=== PATIENT | female | born 1945 | race Caucasian/White ===

== ENCOUNTER 2020-07-07 10:24 | Outpatient (REF) | payer MEDICARE, OTHER, SELFPAY ==
[2020-07-07 10:42] LABS: MANUAL DIFF FLAG NO
[2020-07-07 10:56] LABS: Basophils Absolute Auto 0.1 X10*3/uL (0.0-0.2); Basophils Percent Auto 0.8 % (0-2); Eosinophils Absolute Auto 0.3 X10*3/uL (0.0-0.4); Eosinophils Percent Auto 3.9 % (0-4); Hematocrit 35.7 % (37-47); Hemoglobin 11.8 g/dl (12.0-16.0); Imm Gran Abs Auto 0.02 X10*3/uL (0.00-0.03); Imm Gran Pct Auto 0.2 % (0.0-0.4); Lymphocytes Absolute Auto 4.9 X10*3/uL (1.2-4.9); Mean Corpuscular HGB Conc 33.1 g/dl (31.0-35.0); Mean Corpuscular Hemoglobin 30.4 pg (27.0-33.0); Mean Platelet Volume 12.3 fL (9.4-12.3); Monocytes Percent Auto 11.7 % (2-11); Neutrophils Absolute Auto 2.1 X10*3/uL (2.0-8.3); Neutrophils Percent Auto 25.4 % (45-73); Platelet Count 294 X10*3/uL (160-400); Red Blood Count 3.88 X10*6/uL (4.20-5.50); Red Cell Distribution Width 15.5 % (11.0-16.0); White Blood Count 8.4 X10*3/uL (4.8-10.8)
[2020-07-07 11:05] LABS: Estimated Average Glucose 131 mg/dL; Hemoglobin A1c % 6.2 %
[2020-07-07 11:22] LABS: Alanine Aminotransferase 21 U/L (0-31); Albumin Level 3.9 g/dL (3.5-5.0); Alkaline Phosphatase 74 U/L (39-117); Anion Gap 13 (12-20); Aspartate Amino Transferase 29 U/L (5-31); Bilirubin Total 1.6 mg/dL (0.0-1.0); Blood Urea Nitrogen 56 mg/dL (9-16); Calcium 9.9 mg/dL (8.4-10.2); Carbon Dioxide 23 mmol/L (22-29); Chloride 105 mmol/L (96-108); Cholesterol 159 mg/dL; Estimated Glomerular Filt Rate 29; Glucose Fasting 134 mg/dL (60-99); HDL Cholesterol 34 mg/dL; LDL Cholesterol Calculated 93 mg/dl; Potassium 4.1 mmol/L (3.3-5.1); Sodium 137 mmol/L (135-145); Total Protein 9.8 g/dL (6.5-8.0); Triglycerides 160 mg/dL
== END 2020-07-07 10:25 | disposition home or self-care (01) ==
LOC: HO.LNP 10:24
PROVIDERS: Visit Provider Internal Medicine
DX: D72.820 Lymphocytosis (symptomatic) (principal); R73.09 Other abnormal glucose; I10 Essential (primary) hypertension; M32.9 Systemic lupus erythematosus, unspecified; D69.3 Immune thrombocytopenic purpura
CPT/HCPCS: 80053; 80061; 83036; 85025

== ENCOUNTER 2020-07-21 13:52 | Outpatient (REF) | payer MEDICARE, OTHER, SELFPAY ==
[2020-07-21 13:55] LABS: MANUAL DIFF FLAG NO
[2020-07-21 13:58] LABS: Basophils Percent Auto 0.3 % (0-2); Eosinophils Absolute Auto 0.2 X10*3/uL (0.0-0.4); Eosinophils Percent Auto 2.7 % (0-4); Hematocrit 32.8 % (37-47); Imm Gran Abs Auto 0.03 X10*3/uL (0.00-0.03); Imm Gran Pct Auto 0.3 % (0.0-0.4); Lymphocytes Absolute Auto 3.4 X10*3/uL (1.2-4.9); Lymphocytes Percent Auto 37.6 % (20-40); Mean Corpuscular HGB Conc 33.5 g/dl (31.0-35.0); Mean Corpuscular Hemoglobin 31.1 pg (27.0-33.0); Mean Corpuscular Volume 92.7 fL (80-98); Mean Platelet Volume 12.3 fL (9.4-12.3); Monocytes Absolute Auto 0.9 X10*3/uL (0.1-1.2); Monocytes Percent Auto 10.4 % (2-11); Neutrophils Absolute Auto 4.4 X10*3/uL (2.0-8.3); Neutrophils Percent Auto 48.7 % (45-73); Platelet Count 263 X10*3/uL (160-400); Red Blood Count 3.54 X10*6/uL (4.20-5.50); Red Cell Distribution Width 15.6 % (11.0-16.0)
[2020-07-21 14:06] LABS: Glucose Urine UA NEG (NEG); Leukocyte Esterase Urine 1+ (NEG); Nitrite Urine NEG (NEG); Specific Gravity - Urine 1.015 (1.005-1.025); Urine Blood NEG (NEG); Urine Ketones NEG (NEG); Urine Protein 1+ MG/DL (NEG-TRACE)
[2020-07-21 14:07] LABS: Appearance Urine HAZY; Color Urine YELLOW
[2020-07-21 14:23] LABS: Bacteria Urine 4+ /LPF; RBC Urine 0 /HPF (0); Squamous Epithelial Cell Urine TRACE /LPF; WBC Urine 30-49 /HPF (0-4)
[2020-07-21 14:32] LABS: Blood Urea Nitrogen 94 mg/dL (9-16); Estimated Glomerular Filt Rate 7
[2020-07-21 15:47] LABS: Creatinine Urine 85.13 mg/dL; Microalbum/Creatinine Ratio Ur 59.9 ug/mg cr
== END 2020-07-21 13:53 | disposition home or self-care (01) ==
LOC: HO.LNP 13:52
PROVIDERS: Visit Provider Internal Medicine
DX: D72.820 Lymphocytosis (symptomatic) (principal); R79.9 Abnormal finding of blood chemistry, unspecified; R73.09 Other abnormal glucose; I10 Essential (primary) hypertension
CPT/HCPCS: 81001; 81003; 82043; 82565; 84520; 85025

== ENCOUNTER 2020-08-04 09:39 | Outpatient (REF) | payer MEDICARE, OTHER, SELFPAY ==
[2020-08-04 10:27] LABS: MANUAL DIFF FLAG NO
[2020-08-04 10:35] LABS: Basophils Percent Auto 0.1 % (0-2); Eosinophils Absolute Auto 0.2 X10*3/uL (0.0-0.4); Eosinophils Percent Auto 2.2 % (0-4); Hemoglobin 10.2 g/dl (12.0-16.0); Imm Gran Abs Auto 0.07 X10*3/uL (0.00-0.03); Imm Gran Pct Auto 0.8 % (0.0-0.4); Lymphocytes Absolute Auto 2.8 X10*3/uL (1.2-4.9); Lymphocytes Percent Auto 31.1 % (20-40); Mean Corpuscular Hemoglobin 30.4 pg (27.0-33.0); Mean Corpuscular Volume 89.6 fL (80-98); Mean Platelet Volume 12.4 fL (9.4-12.3); Monocytes Absolute Auto 0.9 X10*3/uL (0.1-1.2); Monocytes Percent Auto 9.7 % (2-11); Neutrophils Percent Auto 56.1 % (45-73); Platelet Count 192 X10*3/uL (160-400); Red Blood Count 3.35 X10*6/uL (4.20-5.50); Red Cell Distribution Width 15.2 % (11.0-16.0); White Blood Count 8.9 X10*3/uL (4.8-10.8)
[2020-08-04 10:51] LABS: Alanine Aminotransferase 24 U/L (0-31); Albumin Level 3.5 g/dL (3.5-5.0); Alkaline Phosphatase 58 U/L (39-117); Anion Gap 12 (12-20); Aspartate Amino Transferase 22 U/L (5-31); Blood Urea Nitrogen 29 mg/dL (9-16); Calcium 8.2 mg/dL (8.4-10.2); Carbon Dioxide 23 mmol/L (22-29); Chloride 106 mmol/L (96-108); Estimated Glomerular Filt Rate 39; Glucose Random 162 mg/dL (60-115); Potassium 3.4 mmol/L (3.3-5.1); Sodium 138 mmol/L (135-145)
== END 2020-08-04 09:40 | disposition home or self-care (01) ==
LOC: HO.10HDL 09:39
PROVIDERS: Absent Provider Internal Medicine Nephrology; Visit Provider Internal Medicine
DX: Z13.89 Encounter for screening for other disorder (principal)
CPT/HCPCS: 36415; 80053; 85025

== ENCOUNTER 2020-12-02 13:15 | Outpatient (REF) | payer MEDICARE, OTHER, SELFPAY ==
[2020-12-02 13:20] LABS: MANUAL DIFF FLAG NO
[2020-12-02 13:23] LABS: Basophils Absolute Auto 0.1 X10*3/uL (0.0-0.2); Basophils Percent Auto 0.7 % (0-2); Eosinophils Absolute Auto 0.1 X10*3/uL (0.0-0.4); Eosinophils Percent Auto 0.7 % (0-4); Hematocrit 25.6 % (37-47); Hemoglobin 8.5 g/dl (12.0-16.0); Imm Gran Abs Auto 0.11 X10*3/uL (0.00-0.03); Imm Gran Pct Auto 1.1 % (0.0-0.4); Lymphocytes Absolute Auto 3.2 X10*3/uL (1.2-4.9); Lymphocytes Percent Auto 32.3 % (20-40); Mean Corpuscular HGB Conc 33.2 g/dl (31.0-35.0); Mean Corpuscular Hemoglobin 29.9 pg (27.0-33.0); Mean Corpuscular Volume 90.1 fL (80-98); Mean Platelet Volume 10.3 fL (9.4-12.3); Monocytes Absolute Auto 1.1 X10*3/uL (0.1-1.2); Monocytes Percent Auto 11.2 % (2-11); NRBC Pct Auto 0.2 /100WBC (0.0-0.2); Neutrophils Absolute Auto 5.3 X10*3/uL (2.0-8.3); Platelet Count 535 X10*3/uL (160-400); Red Blood Count 2.84 X10*6/uL (4.20-5.50); Red Cell Distribution Width 17.5 % (11.0-16.0); White Blood Count 9.8 X10*3/uL (4.8-10.8)
== END 2020-12-02 13:16 | disposition home or self-care (01) ==
LOC: HO.LNP 13:15
PROVIDERS: Visit Provider Internal Medicine
DX: K26.4 Chronic or unspecified duodenal ulcer with hemorrhage (principal)
CPT/HCPCS: 85025

== ENCOUNTER 2021-03-12 08:04 | Outpatient (REF) | payer MEDICARE, OTHER, SELFPAY ==
--- NOTE | ~2021-03-12 | MM_ITS ---
EXAMINATION: MM SCREENING DIGITAL BREAST TOMOSYNTHESIS, BILATERAL CLINICAL INFORMATION: Screening. Asymptomatic. The lifetime risk of breast cancer based on the Tyrer-Cuzick Model is 2%. COMPARISON: Mammography: 11/30/2019, 11/21/2018, 11/17/2017 TECHNIQUE: Digital breast tomosynthesis is performed in both the craniocaudal and mediolateral oblique views along with computer-aided detection (CAD). Synthesized 2D images are generated from the tomosynthesis. FINDINGS: There are scattered areas of fibroglandular density (ACR BI-RADS breast composition Category b). There are no significant masses, abnormal calcifications, or other abnormalities. There is a biopsy clip on right posterior central 9:00 position. Parenchymal pattern is similar to prior studies. No developing density. MM/MM tomosynthesis screening BI IMPRESSION: No mammographic evidence of malignancy. ASSESSMENT: BI-RADS 1: Negative RECOMMENDATION: Routine annual mammography screening. This patient's information was entered into a reminder system with a target due date for their next mammogram.
== END 2021-03-12 08:05 | disposition home or self-care (01) ==
LOC: HO.MAMMO 08:04
PROVIDERS: PCP Internal Medicine; Visit Provider Internal Medicine
DX: Z12.31 Encounter for screening mammogram for malignant neoplasm of breast (principal)
CPT/HCPCS: 77063; 77067

== ENCOUNTER 2021-03-23 09:49 | Outpatient (REF) | payer MEDICARE, OTHER, SELFPAY | END 2021-03-23 09:50 | disposition home or self-care (01) | LOC: HO.HMGCLDS 09:49 | PROVIDERS: PCP Internal Medicine; Visit Provider Internal Medicine | DX: Z20.822 Contact with and (suspected) exposure to COVID-19 (principal) | CPT/HCPCS: C9803; U0003; U0005 ==

== ENCOUNTER 2021-07-23 10:16 | Outpatient (REF) | payer MEDICARE, OTHER, SELFPAY ==
[2021-07-23 10:22] LABS: MANUAL DIFF FLAG NO
[2021-07-23 11:05] LABS: Basophils Absolute Auto 0.1 X10*3/uL (0.0-0.2); Basophils Percent Auto 1.1 % (0-2); Eosinophils Absolute Auto 0.9 X10*3/uL (0.0-0.4); Eosinophils Percent Auto 17.2 % (0-4); Hematocrit 37.9 % (37.0-47.0); Hemoglobin 12.5 g/dl (12.0-16.0); Imm Gran Abs Auto 0.02 X10*3/uL (0.00-0.03); Imm Gran Pct Auto 0.4 % (0.0-0.4); Lymphocytes Absolute Auto 1.8 X10*3/uL (1.2-4.9); Lymphocytes Percent Auto 33.2 % (20-40); Mean Corpuscular Hemoglobin 29.7 pg (27.0-33.0); Mean Platelet Volume 12.2 fL (9.4-12.3); Monocytes Absolute Auto 0.6 X10*3/uL (0.1-1.2); Monocytes Percent Auto 10.4 % (2-11); Neutrophils Absolute Auto 2.1 x10*3/uL (2.0-8.3); Neutrophils Percent Auto 37.7 % (45-73); Platelet Count 221 X10*3/uL (160-400); Red Blood Count 4.21 X10*6/uL (4.20-5.50); Red Cell Distribution Width 16.8 % (11.0-16.0); White Blood Count 5.5 X10*3/uL (4.8-10.8)
[2021-07-23 11:19] LABS: Alanine Aminotransferase 27 U/L (0-31); Albumin Level 3.9 g/dL (3.5-5.0); Alkaline Phosphatase 122 U/L (39-117); Anion Gap 14 (12-20); Appearance Urine CLEAR; Aspartate Amino Transferase 31 U/L (5-31); Blood Urea Nitrogen 15 mg/dL (9-16); Calcium 9.6 mg/dL (8.4-10.2); Carbon Dioxide 22 mmol/L (22-29); Chloride 109 mmol/L (96-108); Cholesterol 168 mg/dL; Color Urine YELLOW; Estimated Glomerular Filt Rate > 60; Glucose Fasting 105 mg/dL (60-99); Glucose Urine UA NEG (NEG); HDL Cholesterol 49 mg/dL; LDL Cholesterol Calculated 101 mg/dl; Leukocyte Esterase Urine 2+ (NEG); Nitrite Urine NEG (NEG); PH 5.5 (5.0-8.0); Potassium 4.5 mmol/L (3.3-5.1); Sodium 140 mmol/L (135-145); Total Protein 6.3 g/dL (6.5-8.0); Triglycerides 93 mg/dL; Urine Blood NEG (NEG); Urine Ketones NEG (NEG); Urine Protein NEG (NEG-TRACE)
[2021-07-23 11:20] LABS: Estimated Average Glucose 108 mg/dL; Hemoglobin A1c % 5.4 %
[2021-07-23 11:28] LABS: Bacteria Urine 4+ /LPF; RBC Urine 0 /HPF (0)
[2021-07-23 11:33] LABS: Creatinine Urine 69.17 mg/dL; Microalbum/Creatinine Ratio Ur 53.4 ug/mg cr
== END 2021-07-23 10:17 | disposition home or self-care (01) ==
LOC: HO.LNP 10:16
PROVIDERS: Visit Provider Internal Medicine
DX: D72.820 Lymphocytosis (symptomatic) (principal); R73.03 Prediabetes; I10 Essential (primary) hypertension
CPT/HCPCS: 80053; 80061; 81001; 81003; 82043; 83036; 85025

== ENCOUNTER 2021-07-27 15:34 | Outpatient (REF) | payer MEDICARE, OTHER, SELFPAY | END 2021-07-27 15:35 | disposition home or self-care (01) | LOC: HO.LNP 15:34 | PROVIDERS: Visit Provider Internal Medicine | DX: N39.0 Urinary tract infection, site not specified (principal) | CPT/HCPCS: 87086; 87088; 87186 ==

== ENCOUNTER 2022-03-16 08:10 | Outpatient (REF) | payer MEDICARE, OTHER, SELFPAY ==
--- NOTE | ~2022-03-16 | MM_ITS ---
EXAMINATION: MM SCREENING DIGITAL BREAST TOMOSYNTHESIS, BILATERAL CLINICAL INFORMATION: Screening. Asymptomatic. The lifetime risk of breast cancer based on the Tyrer-Cuzick Model is 2%. COMPARISON: Mammography: 03/12/2021, 11/30/2019, 11/21/2018 TECHNIQUE: Digital breast tomosynthesis is performed in both the craniocaudal and mediolateral oblique views along with computer-aided detection (CAD). Synthesized 2D images are generated from the tomosynthesis. Additional bilateral MLO views are provided. FINDINGS: There are scattered areas of fibroglandular density (ACR BI-RADS breast composition Category b). There are no significant masses, abnormal calcifications, or other abnormalities. No developing density or architectural abnormality. Biopsy clip marker again seen central posterior outer right breast. MM/MM tomosynthesis screening BI IMPRESSION: No mammographic evidence of malignancy. ASSESSMENT: BI-RADS 1: Negative RECOMMENDATION: Routine annual mammography screening. This patient's information was entered into a reminder system with a target due date for their next mammogram.
== END 2022-03-16 08:11 | disposition home or self-care (01) ==
LOC: HO.MAMMO 08:10
PROVIDERS: PCP Internal Medicine; Visit Provider Internal Medicine
DX: Z12.31 Encounter for screening mammogram for malignant neoplasm of breast (principal)
CPT/HCPCS: 77063; 77067

== ENCOUNTER 2022-07-26 10:44 | Outpatient (REF) | payer MEDICARE, OTHER, SELFPAY ==
[2022-07-26 10:48] LABS: MANUAL DIFF FLAG NO
[2022-07-26 11:26] LABS: Appearance Urine Cloudy; Color Urine Yellow; Glucose Urine UA Negative (Negative); Leukocyte Esterase Urine Moderate (2+) (Negative); Nitrite Urine Negative (Negative); PH 6.5 (5.0-9.0); Specific Gravity - Urine 1.015 (1.005-1.025); UMIC TRIGGER UACC YES; Urine Blood Negative (Negative); Urine Ketones Negative (Negative); Urine Protein Negative (Neg-Trace)
[2022-07-26 11:30] LABS: Bacteria Urine 4+ (None Seen); Hyaline Casts Urine 0-2 /LPF (0-2); RBC Urine 0-2 /HPF (0-2); Squamous Epithelial Cell Urine 0-2 /HPF (0-2); UACC Culture Trigger YES
[2022-07-26 11:31] LABS: Basophils Absolute Auto 0.1 X10*3/uL (0.0-0.2); Basophils Percent Auto 0.9 % (0-2); Eosinophils Absolute Auto 0.7 X10*3/uL (0.0-0.4); Eosinophils Percent Auto 12.1 % (0-4); Hematocrit 35.8 % (37.0-47.0); Hemoglobin 12.1 g/dl (12.0-16.0); Imm Gran Abs Auto 0.02 X10*3/uL (0.00-0.03); Imm Gran Pct Auto 0.4 % (0.0-0.4); Lymphocytes Absolute Auto 2.3 X10*3/uL (1.2-4.9); Lymphocytes Percent Auto 39.6 % (20-40); Mean Corpuscular HGB Conc 33.8 g/dl (31.0-35.0); Mean Corpuscular Hemoglobin 30.7 pg (27.0-33.0); Mean Corpuscular Volume 90.9 fL (80.0-98.0); Mean Platelet Volume 11.7 fL (9.4-12.3); Monocytes Absolute Auto 0.7 X10*3/uL (0.1-1.2); Monocytes Percent Auto 12.6 % (2-11); Neutrophils Percent Auto 34.4 % (45-73); Platelet Count 244 X10*3/uL (160-400); Red Blood Count 3.94 X10*6/uL (4.20-5.50); Red Cell Distribution Width 16.8 % (11.0-16.0); White Blood Count 5.7 X10*3/uL (4.8-10.8)
[2022-07-26 11:38] LABS: Estimated Average Glucose 114 mg/dL; Hemoglobin A1c % 5.6 %
[2022-07-26 12:05] LABS: Alanine Aminotransferase 19 U/L (0-31); Albumin Level 3.8 g/dL (3.5-5.0); Alkaline Phosphatase 133 U/L (39-117); Anion Gap 13 (12-20); Aspartate Amino Transferase 23 U/L (5-31); Bilirubin Total 1.4 mg/dL (0.0-1.0); Blood Urea Nitrogen 16 mg/dL (9-16); Calcium 8.7 mg/dL (8.4-10.2); Carbon Dioxide 23 mmol/L (22-29); Chloride 107 mmol/L (96-108); Cholesterol 150 mg/dL; Estimated Glomerular Filt Rate > 60; Glucose Fasting 119 mg/dL (60-99); HDL Cholesterol 47 mg/dL; LDL Cholesterol Calculated 89 mg/dl; Potassium 3.9 mmol/L (3.3-5.1); Sodium 139 mmol/L (135-145); Total Protein 6.7 g/dL (6.5-8.0); Triglycerides 72 mg/dL
[2022-07-26 12:37] LABS: Creatinine Urine 59.32 mg/dL; Microalbum/Creatinine Ratio Ur 8.4 ug/mg cr
== END 2022-07-26 10:45 | disposition home or self-care (01) ==
LOC: HO.LNP 10:44
PROVIDERS: Visit Provider Internal Medicine
DX: Z00.00 Encounter for general adult medical examination without abnormal findings (principal); D72.820 Lymphocytosis (symptomatic); R73.03 Prediabetes; I10 Essential (primary) hypertension
CPT/HCPCS: 80053; 80061; 81001; 82043; 83036; 85025; 87086; 87088; 87186

== ENCOUNTER 2023-03-23 08:15 | Outpatient (REF) | payer MEDICARE, OTHER, SELFPAY ==
--- NOTE | ~2023-03-23 | MM_ITS ---
EXAMINATION: MM SCREENING DIGITAL BREAST TOMOSYNTHESIS, BILATERAL CLINICAL INFORMATION: Screening. Asymptomatic. COMPARISON: Mammography: This study is compared with prior exams dating back to 2018. TECHNIQUE: Digital breast tomosynthesis is performed in both the craniocaudal and mediolateral oblique views along with computer-aided detection (CAD). Synthesized 2D images are generated from the tomosynthesis. FINDINGS: There are scattered areas of fibroglandular density (ACR BI-RADS breast composition Category b). There are no significant masses, abnormal calcifications, or other abnormalities. There is a tissue marker present in the right breast from prior benign percutaneous biopsy. MM/MM tomosynthesis screening BI IMPRESSION: No mammographic evidence of malignancy. ASSESSMENT: BI-RADS BI-RADS 2 - Benign Findings RECOMMENDATION: Routine annual mammography screening. 1 year F/U This examination should not preclude the clinical evaluation of a suspicious palpable abnormality. This patient's information was entered into a reminder system with a target due date for their next mammogram.
== END 2023-03-23 08:16 | disposition home or self-care (01) ==
LOC: HO.MAMMO 08:15
PROVIDERS: PCP Internal Medicine; Visit Provider Internal Medicine
DX: Z12.31 Encounter for screening mammogram for malignant neoplasm of breast (principal)
CPT/HCPCS: 77063; 77067

== ENCOUNTER → 2023-03-23 08:30 | Outpatient (BNV) | payer MEDICARE, OTHER, SELFPAY | PROVIDERS: PCP Internal Medicine; Visit Provider Radiology Diagnostic Radiology | DX: Z12.31 Encounter for screening mammogram for malignant neoplasm of breast (principal) | CPT/HCPCS: 77063; 77067 ==

== ENCOUNTER 2023-07-26 11:20 | Outpatient (REF) | payer MEDICARE, OTHER, SELFPAY ==
[2023-07-26 11:26] LABS: MANUAL DIFF FLAG NO
[2023-07-26 11:40] LABS: Basophils Absolute Auto 0.1 X10*3/uL (0.0-0.2); Basophils Percent Auto 1.5 % (0-2); Eosinophils Absolute Auto 0.8 X10*3/uL (0.0-0.4); Eosinophils Percent Auto 16.2 % (0-4); Hematocrit 35.3 % (37.0-47.0); Hemoglobin 12.2 g/dl (12.0-16.0); Imm Gran Abs Auto 0.02 X10*3/uL (0.00-0.03); Imm Gran Pct Auto 0.4 % (0.0-0.4); Lymphocytes Absolute Auto 2.1 X10*3/uL (1.2-4.9); Lymphocytes Percent Auto 43.5 % (20-40); Mean Corpuscular HGB Conc 34.6 g/dl (31.0-35.0); Mean Corpuscular Hemoglobin 31.2 pg (27.0-33.0); Mean Corpuscular Volume 90.3 fL (80.0-98.0); Mean Platelet Volume 11.4 fL (9.4-12.3); Monocytes Absolute Auto 0.6 X10*3/uL (0.1-1.2); Monocytes Percent Auto 12.1 % (2-11); NRBC Pct Auto 0.4 /100WBC (0.0-0.2); Neutrophils Absolute Auto 1.3 x10*3/uL (2.0-8.3); Neutrophils Percent Auto 26.3 % (45-73); Platelet Count 212 X10*3/uL (160-400); Red Blood Count 3.91 X10*6/uL (4.20-5.50); Red Cell Distribution Width 18.1 % (11.0-16.0); White Blood Count 4.8 X10*3/uL (4.8-10.8)
[2023-07-26 11:45] LABS: Estimated Average Glucose 111 mg/dL; Hemoglobin A1C 114.1804 umol/L; Hemoglobin A1c % 5.5 % (<6.0)
[2023-07-26 11:53] LABS: Alanine Aminotransferase 20 U/L (0-31); Albumin Level 3.7 g/dL (3.5-5.0); Alkaline Phosphatase 125 U/L (39-117); Anion Gap 11 (12-20); Aspartate Amino Transferase 24 U/L (5-31); Bilirubin Total 0.6 mg/dL (0.0-1.0); Blood Urea Nitrogen 17 mg/dL (9-16); Calcium 9.1 mg/dL (8.4-10.2); Carbon Dioxide 24 mmol/L (22-29); Chloride 113 mmol/L (96-108); Cholesterol 122 mg/dL (<200); Estimated Glomerular Filt Rate > 60; Glucose Fasting 102 mg/dL (60-99); HDL Cholesterol 48 mg/dL (>40); LDL Cholesterol Calculated 62 mg/dL (<100); Potassium 3.8 mmol/L (3.3-5.1); Sodium 144 mmol/L (135-145); Total Protein 7.4 g/dL (6.5-8.0); Triglycerides 60 mg/dL (<150)
== END 2023-07-26 11:21 | disposition home or self-care (01) ==
LOC: HO.LNP 11:20
PROVIDERS: Visit Provider Internal Medicine
DX: D72.820 Lymphocytosis (symptomatic) (principal); R73.09 Other abnormal glucose; I10 Essential (primary) hypertension
CPT/HCPCS: 80053; 80061; 83036; 85025

== ENCOUNTER 2023-08-11 16:00 | Outpatient (REF) | payer MEDICARE, OTHER, SELFPAY ==
[2023-08-11 16:31] LABS: Appearance Urine Clear; Bacteria Urine None Seen (None Seen); Color Urine Yellow; Glucose Urine UA Negative (Negative); Hyaline Casts Urine 0-2 /LPF (0-2); Leukocyte Esterase Urine Negative (Negative); Nitrite Urine Negative (Negative); RBC Urine 0-2 /HPF (0-2); Specific Gravity - Urine 1.025 (1.005-1.025); Squamous Epithelial Cell Urine 0-2 /HPF (0-2); UMIC TRIGGER UACC YES; Urine Blood Negative (Negative); Urine Ketones Trace mg/dL (Negative); Urine Protein 100 (2+) mg/dL (Neg-Trace); WBC Urine 0-5 /HPF (0-5)
[2023-08-11 16:45] LABS: Creatinine Urine 162.98 mg/dL; Microalbum/Creatinine Ratio Ur 276.7 ug/mg cr (<30)
== END 2023-08-11 16:01 | disposition home or self-care (01) ==
LOC: HO.LNP 16:00
PROVIDERS: Visit Provider Internal Medicine
DX: I10 Essential (primary) hypertension (principal); R73.03 Prediabetes
CPT/HCPCS: 81001; 82043; 82570

== ENCOUNTER 2024-04-30 11:36 | Outpatient (REF) | payer MEDICARE, OTHER, SELFPAY ==
--- NOTE | ~2024-04-30 | MM_ITS ---
EXAMINATION: MM SCREENING DIGITAL BREAST TOMOSYNTHESIS, BILATERAL CLINICAL INFORMATION: Screening. Asymptomatic. COMPARISON: Mammography: Comparison is made with available priors TECHNIQUE: Digital breast mammography with tomosynthesis is performed in both the craniocaudal and mediolateral oblique views along with computer-aided detection (CAD). FINDINGS: There are scattered areas of fibroglandular density (ACR BI-RADS breast composition Category b). Right marker clip. There are no significant masses, abnormal calcifications, or other abnormalities. MM/MM tomosynthesis screening BI IMPRESSION: No mammographic evidence of malignancy. ASSESSMENT: BI-RADS BI-RADS 2 - Benign Findings RECOMMENDATION: Routine annual mammography screening. 1 year F/U This examination should not preclude the clinical evaluation of a suspicious palpable abnormality. This patient's information was entered into a reminder system with a target due date for their next mammogram. Electronically signed by: Riri Benitez DO 05/06/2024 05:58 PM BEE
== END 2024-04-30 11:37 | disposition home or self-care (01) ==
LOC: HO.MAMMO 11:36
PROVIDERS: PCP Internal Medicine; Visit Provider Internal Medicine
DX: Z12.31 Encounter for screening mammogram for malignant neoplasm of breast (principal)
CPT/HCPCS: 77063; 77067

== ENCOUNTER → 2024-04-30 11:45 | Outpatient (BNV) | payer MEDICARE, OTHER, SELFPAY | PROVIDERS: PCP Internal Medicine; Visit Provider Internal Medicine | DX: Z12.31 Encounter for screening mammogram for malignant neoplasm of breast (principal) | CPT/HCPCS: 77063; 77067 ==

== ENCOUNTER 2024-08-07 07:45 | Outpatient (REF) | payer MEDICARE, OTHER, SELFPAY ==
[2024-08-07 11:10] LABS: MANUAL DIFF FLAG NO
[2024-08-07 11:30] LABS: Basophils Absolute Auto 0.1 X10*3/uL (0.0-0.2); Basophils Percent Auto 0.9 % (0-2); Eosinophils Absolute Auto 0.6 X10*3/uL (0.0-0.4); Eosinophils Percent Auto 10.9 % (0-4); Hematocrit 31.9 % (37.0-47.0); Imm Gran Abs Auto 0.08 X10*3/uL (0.00-0.03); Imm Gran Pct Auto 1.5 % (0.0-0.4); Lymphocytes Absolute Auto 2.1 X10*3/uL (1.2-4.9); Lymphocytes Percent Auto 38.8 % (20-40); Mean Corpuscular HGB Conc 34.5 g/dl (31.0-35.0); Mean Corpuscular Hemoglobin 30.6 pg (27.0-33.0); Mean Corpuscular Volume 88.9 fL (80.0-98.0); Mean Platelet Volume 11.3 fL (9.4-12.3); Monocytes Absolute Auto 0.6 X10*3/uL (0.1-1.2); Monocytes Percent Auto 10.4 % (2-11); Neutrophils Percent Auto 37.5 % (45-73); Platelet Count 269 X10*3/uL (160-400); Red Blood Count 3.59 X10*6/uL (4.20-5.50); Red Cell Distribution Width 17.7 % (11.0-16.0); White Blood Count 5.4 X10*3/uL (4.8-10.8)
[2024-08-07 11:33] LABS: NRBC Pct Auto 2.6 /100WBC (0.0-0.2)
[2024-08-07 11:34] LABS: Appearance Urine Clear; Color Urine Yellow; Glucose Urine UA Negative (Negative); Leukocyte Esterase Urine Negative (Negative); Nitrite Urine Negative (Negative); PH 5.5 (5.0-9.0); Specific Gravity - Urine 1.015 (1.005-1.025); Urine Blood Negative (Negative); Urine Ketones Negative (Negative); Urine Protein Negative (Neg-Trace)
[2024-08-07 11:37] LABS: Estimated Average Glucose 108 mg/dL; Hemoglobin A1C 107.8422 umol/L; Hemoglobin A1c % 5.4 % (<6.0); Total Hemoglobin (HGBA1C) 3022.4486 umol/L
[2024-08-07 11:43] LABS: Bacteria Urine None Seen (None Seen); Hyaline Casts Urine 0-2 /LPF (0-2); RBC Urine 0-2 /HPF (0-2); Squamous Epithelial Cell Urine 0-2 /HPF (0-2); WBC Urine 0-5 /HPF (0-5)
[2024-08-07 11:47] LABS: Alanine Aminotransferase 23 U/L (0-31); Albumin Level 3.5 g/dL (3.5-5.0); Alkaline Phosphatase 112 U/L (39-117); Anion Gap 11 (12-20); Aspartate Amino Transferase 42 U/L (5-31); Bilirubin Total 1.6 mg/dL (0.0-1.0); Blood Urea Nitrogen 23 mg/dL (9-16); Calcium 9.3 mg/dL (8.4-10.2); Carbon Dioxide 22 mmol/L (22-29); Chloride 110 mmol/L (96-108); Cholesterol 111 mg/dL (<200); Estimated Glomerular Filt Rate 58; Glucose Fasting 98 mg/dL (60-99); HDL Cholesterol 53 mg/dL (>40); LDL Cholesterol Calculated 47 mg/dL (<100); Sodium 139 mmol/L (135-145); Total Protein 6.6 g/dL (6.5-8.0); Triglycerides 59 mg/dL (<150)
[2024-08-07 12:03] LABS: Creatinine Urine 80.55 mg/dL; Microalbumin Urine < 5.0 mg/L
--- OUTSIDE RECORDS SUMMARY | 2024-08-07 13:41 | XMS_ITS | Clinical Summary ---
Author Organization [facility] Facility Address [address] [place] [address] Care Team Providers Care Automatic Grinding Machine Operator Name Role Phone Jonathan Lilly MD Primary Care Provider Allergies Active Allergy Reactions Criticality Noted Date Comments Clindamycin 08/01/2020 Hyoscyamine 08/01/2020 LEVBID - HIVES Penicillins 08/01/2020 Medications acetaminophen (TYLENOL) 325 MG tablet Take 650 mg by mouth every 6 (six) hours Active amLODIPine (NORVASC) 10 MG tablet Take 10 mg by mouth 1 (one) time each day Active carvedilol (COREG) 12.5 MG tablet Take 12.5 mg by mouth 1 (one) time each day Active furosemide (LASIX) 20 MG tablet Take 20 mg by mouth 1 (one) time each day if needed Active sodium bicarbonate 650 MG tablet Take 1,300 mg by mouth 2 (two) times a day Active Active Problems Problem Noted Date Diagnosed Date Chronic kidney disease, stage 4 (severe) 021 Acute nontraumatic kidney injury Diastolic heart failure Hemolytic anemia Hypertension Leukocytosis Metabolic acidosis Multiple myeloma Nephrotic range proteinuria Other abnormal clinical findings Overview (08/01/2020): elevated kappa to lambda ratio, IgG elevated, IgA and IgM decreased Thyroid stimulating hormone level above referenc e range Systemic lupus erythematosus Serum creatinine above reference range Albuminuria Social History Tobacco Use Types Packs/Day Years Used Date Smoking Tobacco: Never Comments Unknown Sex and Gender Information Value Date Recorded Sex Assigned at Not on file Legal Sex Female 10:14 AM EDT Gender Identity Not on file Sexual Orientation Not on file Plan of Treatment Health Maintenance Due Date Last Done Comments Pneumococcal Vaccine: 50+ Ye ars (1 of 2 - PCV) 1964 Influenza Vaccine (Season Ended) 2024 Hepatitis B Vaccine Aged Out No longe r eligible based on patient's age to complete this topic Insurance Medicare [facility] Care Teams Automatic Grinding Machine Operator Relationship Specialty Start Date End Date Jonathan Lilly MD [address] [place] [address] [address] [place], [place] PCP - General Internal Medicine 08/01/20
--- OUTSIDE RECORDS SUMMARY | 2024-08-07 13:41 | XMS_ITS ---
Author Organization Jonathan Lilly MD Address [address] [place], [place] [id number] Care Team Providers Care Concrete Rod Buster Name Role Phone Jonathan Lilly Primary Care Provider Results Component Value Reference Range Notes Comprehensive Ohlman. Panel Fa st (Not yet reviewed by provider) Interpretation: Performing Lab:[facility], [address] [place] [id number] Notes/Report: Sodium 139 135-145 mmol/L Potassium 4.0 3.3-5.1 mmol/L Chloride 110 96-108 mmol/L Carbon Dioxide 22 22-29 mmol/L Anion Gap 11 12-20 Blood Urea Nitrogen 23 9-16 mg/dL Creatinine 0.93 0.5-1.4 mg/dL Estimated Glomerular Filt Rate 58 Chronic Kidney Disease: Estimated GFR < 60 mL/min/1.73m2 Severe Kidney Disease: Estimated GFR < 15 mL/min/1.73m2 Glucose Fasting 98 60-99 mg/dL Calcium 9.3 8.4-10.2 mg/dL Bilirubin Total 1.6 0.0-1.0 mg/dL Aspartate Amino Transferase 42 5-31 U/L Alanine Aminotransferase 23 0-31 U/L Total Protein 6.6 6.5-8.0 g/dL Albumin Level 3.5 3.5-5.0 g/dL Alkaline Phosphatase 112 39-117 U/L UA ClnCatch+Micro w/rflx Cul t (Not yet reviewed by provider) Interpretation: Performing Lab:[facility], [address] [place] [phone] Notes/Report: Urine, Clean Catch Color Urine Yellow Appearance Urine Clear PH 5.5 5.0-9.0 Glucose Urine UA Negative Negative mg/dL Urine Blood Negative Negative Specific Munger - Urine 1.015 1.005-1.025 Urine Protein Negative Neg-Trace mg/dL Urine Ketones Negative Negative mg/dL Nitrite Urine Negative Negative Leukocyte Esterase Urine Negative Negative RBC Urine 0-2 0-2 /HPF WBC Urine 0-5 0-5 /HPF Squamous Epithelial Cell Urine 0-2 0-2 /HPF Bacteria Urine None Seen None Seen Hyaline Casts Urine 0-2 0-2 /LPF Complete Blood Count Auto Di ff Reviewed date:08/07/2024 01:12:06 PM Interpretation: Performing Lab:[facility], [address] [place] [phone] Notes/Report: White Blood Count 5.4 4.8-10.8 X10*3/uL Red Blood Count 3.59 4.20-5.50 X10*6/uL Hemoglobin 11.0 12.0-16.0 g/dl Hematocrit 31.9 37.0-47.0 % Mean Corpuscular Volume 88.9 80.0-98.0 fL Mean Corpuscular Hemoglobin 30.6 27.0-33.0 pg Mean Corpuscular HGB Conc 34.5 31.0-35.0 g/dl Red Cell Distribution Width 17.7 11.0-16.0 % Platelet Count 269 160-400 X10*3/uL Mean Platelet Volume 11.3 9.4-12.3 fL Neutrophils Percent Auto 37.5 45-73 % Imm Gran Pct Auto 1.5 0.0-0.4 % Lymphocytes Percent Auto 38.8 20-40 % Monocytes Percent Auto 10.4 2-11 % Eosinophils Percent Auto 10.9 0-4 % Basophils Percent Auto 0.9 0-2 % NRBC Pct Auto 2.6 0.0-0.2 /100WBC Neutrophils Absolute Auto 2.0 2.0-8.3 x10*3/u L Imm Gran Abs Auto 0.08 0.00-0.03 X10*3/uL Lymphocytes Absolute Auto 2.1 1.2-4.9 X10*3/u L Monocytes Absolute Auto 0.6 0.1-1.2 X10*3/uL Eosinophils Absolute Auto 0.6 0.0-0.4 X10*3/u L Basophils Absolute Auto 0.1 0.0-0.2 X10*3/uL NRBC Abs Auto 0.140 0.0-0.012 X10*3/uL Lipid Panel Reviewed date:08/07/2024 01:05:25 PM Interpretation: Performing Lab:[address] [phone] Notes/Report: Triglycerides 59 <150 mg/dL Desirable Triglyceride: less than 150 mg/dL Borderline High Triglyceride 150-199 mg/dL High Triglyceride: 200-499 mg/dL Very High Triglyceride: greater than or equal to 5OO mg/dL Cholesterol 111 <200 mg/dL Desirable Cholesterol: less than 200 mg/dL Borderline High Cholesterol: 200-239 mg/dL High Cholesterol: greater than 239 mg/dL LDL Cholesterol Calculated 47 <100 mg/dL Desirable LDL: less than 100 mg/dL Near Optimal/Above Optimal LDL: 110-129 mg/dL Borderline High LDL: 130-159 mg/dL High LDL: 160-189 mg/dL Very High LDL: greater than or equal to 190 mg/dL HDL Cholesterol 53 >40 mg/dL Desirable HDL: greater than 40 mg/dL Note: This HDL assay may give artificially low results in patients with liver disease. Microalbumin, Random Reviewed date:08/07/2024 01:06:06 PM Interpretation: Performing Lab:[address] [phone] Notes/Report: Creatinine Urine 80.55 Microalbumin Urine < 5.0 Microalbum/Creatinine Ratio Ur TNP <30 ug/mg cr Unable to calculate albumin/creatinine ratio due to low microalbumin or creatinine result. Hemoglobin A1c Reviewed date:08/07/2024 01:05:09 PM Interpretation: Performing Lab:[address] [place] [address] Notes/Report: Hemoglobin A1c % 5.4 <6.0 % Hemoglobin A1C Reference Range Adults: 4.8 - 6.0 % Non diabetic: < 6.0 % Goal: < 7.0 % Additional Action Suggested: > 8.0 % Note: Hemoglobin A1c results are invalid for patients with abnormal amounts of HbF. Blood transfusions may impact the HbA1c concentration in the patient sample. Estimated Average Glucose 108 eAG = Estimated average glucose which is %A1C expressed as average glucose, using the formula of the [id number] Average Glucose study (ADAG), Diabetes Care, Vol.31,#8, 2007 REASON FOR VISIT FASTING LABS Encounters Encounter Location Date Provider Diagnosis Jonathan Lilly MD [address] [place] [address] [place] [phone] 08/07/2024 Jonathan Lilly Lymphocytosis D72.82 0 ; Prediabetes R73.09 and Essential hypertension I10 Assessments Encounter Date Diagnosis (ICD Code) Assessment Notes Treatment Notes Treatment Clinical Notes Section Notes 08/07/2024 Lymphocytosis (ICD-10 - D72.820) 08/07/2024 Prediabetes (ICD-10 - R73.09) 08/07/2024 Essential hypertension (ICD-10 - I10) Plan Of Treatment Pending Test Test Name Order Date Comprehensive Ohlman. Panel Fast UA ClnCatch+Micro w/rflx Cult 08/07/2024 Next Appt Details Provider Name:Jonathan Fisher ier, 08/14/2024 10:30:00 AM, [address] [place] [address], [place] [address], [place], [place], [phone], Progress Notes * Valarie SZYMANSKI MDOB:1945 ( 78 yo F)Acc No.[id number]:08/07/2024 Progress Note Patient:?Valarie SZYMANSKI Provider:?Jonathan Lilly MD :1945???Age:78 Y???Sex:Female D ate:08/07/2024 Address:[address] [place], [place] [id number] Subjective: * Chief Complaints: * ???1. FASTING LABS. * Medical History:? Objective: * Vitals:? Assessment: * Assessment: 1.?Lymphocytosis - D72.820 ( Primary)???2.?Prediabetes - R73.09???3.?Essential hypertension - I10??? Plan: * Treatment: 2.?Prediabetes?LAB: Comprehensive Ohlman. Panel Fast (Collection Date & Time - 08/07/2024 07:45 AM) ?LAB: UA ClnCatch+Micro w/rflx Cult (Collection Date & Time - 08/07/2024 07:45 AM) ?LAB: Complete Blood Count Auto Diff (Collection Date & Time - 08/07/2024 07:45 AM) ?LAB: Lipid Panel (Collection Date & Time - 08/07/2024 07:45 AM) ?LAB: Microalbumin, Random (Collection Date & Time - 08/07/2024 07:45 AM) ?LAB: Hemoglobin A1c (Collection Date & Time - 08/07/2024 07:45 AM) 3.?Essential hypertension?LAB: Comprehensive Ohlman. Panel Fast (Collection Date & Time - 08/07/2024 07:45 AM) ?LAB: UA ClnCatch+Micro w/rflx Cult (Collection Date & Time - 08/07/2024 07:45 AM) ?LAB: Complete Blood Count Auto Diff (Collection Date & Time - 08/07/2024 07:45 AM) ?LAB: Lipid Panel (Collection Date & Time - 08/07/2024 07:45 AM) ?LAB: Microalbumin, Random (Collection Date & Time - 08/07/2024 07:45 AM) ?LAB: Hemoglobin A1c (Collection Date & Time - 08/07/2024 07:45 AM) * Procedure Codes:?19710 VENIP UNCT, ROUTINE* * * The named appointment provid er may or may not be the originator of this progress note, and it is not deemed complete until electronically signed by the appointment provider. Sign off status: Pending * Provider:?Jonathan Lilly MD Date:?0 08/07/2024 Generated for Printi ng/Dustin/Mayiitting on:?08/07/2024 01:41 PM EDT
--- OUTSIDE RECORDS SUMMARY | 2024-08-07 13:41 | XMS_ITS | Patient Health Record ---
[facility] Address [address] [place] [address] Care Team Providers Care Lobster Man Name Role Phone Vijaya RIVAS, Jonathan Primary Care Provider Cristóbal Wright Unavailable [phone] Allergies Allergen (clinical drug ingredient) Drug/Non Drug Allergy documented on EMR Reaction Allergy Type Onset Date Status hyoscyamine Levbid hives Drug Allergy Activ e Substance with penicillin structure and antibacterial mechanism of action (substance) Penicillins hives Drug Allergy Active Reason For Referral No Information Medications Medication SIG (Take, Route, Frequency, Duration) Notes Start Date End Date Status Revlimid 10 MG 1 capsule Orally Onc e a day Active Zometa Active Pantoprazole Sodium 40 MG 1 tablet Orall y Once a day Active Gabapentin 100 MG 1 capsule Orally Onc e a day Active Klor-Con M20 20 MEQ 1 tablet with food Orally Once a day Active Ferrous Sulfate 325 (65 Fe) MG 1 tablet Orally Three times a Week Active Furosemide 20 MG 1 tablet Orally Once a day Active amLODIPine Besylate 10 MG 1 tablet Orall y Once a day Active Eliquis 5 MG 1 tablet Orally Twic e a day Active Doxycycline Hyclate 100 MG 1 capsule Orally Once a day for 10 day(s) 09/22/2022 Not-Taking Acyclovir 400 MG 1 tablet Orally Twic e a day Active Social History Tobacco Use: Social History Observation Description Date Details (start date - stop date) Never Smoker NA - NA Tobacco Use/Smoking Question Answer Notes Are you a: nonsmoker Additional Findings: Tobacco Non-User Current no n-smoker Alcohol Screen Question Answer Notes Did you have a drink containing alcohol in the p ast year? No Points 0 Interpretation Negative Tobacco use other than smoking: Question Answer Notes Are you an other tobacco user? No Problems Problem Type SNOMED Code ICD Code Onset Dates Problem Status W/U Status Risk Notes Problem Non-pressure chronic ulcer of other part of right foot limited to breakdown of skin (L97.511) Active confirmed Plan Of Treatment No Information Insurance Providers Payer Name Payer Address Payer Phone Subscriber Number Group Number Insured Name Patient Relationship to Insured Coverage Start Date Coverage End Date Medicare [employer] [address] [place] [address] [id number] Valarie Szymanski Self - patient is the insured [employer]) [address] [place] [id number] [phone] [id number] Valarie Szymanski Self - patient is the insured Medical (General) History Medical History History ICD Code Anemia Arthritis Back,Hip,and Knee pain Cancer Cataracts Gall bladder problems Gout Headaches/Migraines High blood pressure Lupus Numbness Sciatica Stomach ulcer Vascular phlebitis (clots) Measles Mumps Chicken pox Joint implants/screws Transfusions ITP Surgical History Surgery Date(Month/Year) tonsillectomy 1953 hysterectomy 1987 splenectomy 1988 knee replacement, right 11/2004 left knee replacement 06/2006 gall bladder 06/2017
--- OUTSIDE RECORDS SUMMARY | 2024-08-07 13:41 | XMS_ITS | Patient Health Record ---
Author Organization [facility] Address [address] [place] [address] Care Team Providers Care Kinesiology Internship Name Role Phone Jonathan Lilly MD Primary Care Provider Daniel Christopher [phone] Allergies Allergen (clinical drug ingredient) Drug/Non Drug Allergy documented on EMR Reaction Allergy Type Onset Date Status Penicillin Unknown Drug Allergy Active hyoscyamine Levbid Unknown Drug Allergy Activ e Reason For Referral No Information Medications Medication SIG (Take, Route, Frequency, Duration) Notes Start Date End Date Status Ferrous Sulfate 325 (65 Fe) MG TAKE 1 TABLET BY MOUTH EVERY DAY Oral for 90 Active Klor-Con M20 20 MEQ Oral for 90 Active Gabapentin 100 MG Oral for 30 Active Pantoprazole Sodium 40 MG Oral for 90 Active amLODIPine Besylate 10 MG TAKE 1 TABLET BY MOUTH EVERY DAY Oral for 90 Active Zometa 4 MG as directed Intraven ous every 3 months Active Eliquis 5 MG Oral for 90 Activ e Acyclovir 400 MG 1 tablet Orally Twic e a day for 10 day(s) Active Revlimid 10 MG TAKE 1 CAPSULE BY [facility] DAILY FOR 21 DAYS THEN 7 DAYS OFF Oral for 28 Active Furosemide 20 MG Oral for 90 A ctive Immunizations Vaccine Route Administration Date Status Comme nts Flu vaccine no Preserv 3 and > Unknown 01/09/2014 Admin istered Influenza Unknown 12/24/2014 Administered Influenza Unknown 09/16/2021 Administered Problems Problem Type SNOMED Code ICD Code Onset Dates Problem Status W/U Status Risk Notes Problem 995548484 History of adenomatous polyp of colon (Z86.010) Active confirmed Problem 52840529 Other cirrhosis of liver (K74.69) Active confirmed Problem 65001030 Heme + stool (R19.5) Active confirmed Problem 515633643 Granuloma of liver (K75.3) Active confirmed Problem 333976144 Elevated ferritin (R79.89) Active confirmed Plan Of Treatment Pending Test Test Name Order Date [id number] ENZ. (CHARU) 12/2014 HEMOCHROMATOSIS (C282Y) 04/02/2015 HISTOPLASMA FIXATION SERUM 04/02/2015 Future Test Test Name Order Date COLONOSCOPY 04/01/2011 COLONOSCOPY 08/12/2016 Insurance Providers Payer Name Payer Address Payer Phone Subscriber Number Group Number Insured Name Patient Relationship to Insured Coverage Start Date Coverage End Date MEDICARE OF [place] [address] [place] [address] [id number] FELICIA GREENE Self - patient is the insured [facility] [address] [place] [address] [id number] FELICIA GREENE Self - patient is the insured Medical (General) History Medical History History ICD Code 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 colonoscopy in 04/2011 and in 2000 CBD stones-S/P ERCP with sphincterotomy in 06/2014 ? Of cirrhosis--Dr. Tran describes a nodular liver he visualized during her laparoscopic cholecystectomy--a liver biopsy was not obtained--she had a negative hepatitis B and C serology in October 2014. She had a completely neg. liver w/u in 10/2014--- A fibrospect blood test for liver fibrosis revealed a score that was consistent with only a F1 Metavir score(Ranges from F0 to F4, with F4 being c/w cirrhosis) Liver biopsy in February of 2015 was negative for cirrhosis, significant fibrosis, nor any significant fatty liver--there were some granuloma noted, but workup for primary biliary cirrhosis, sarcoidosis, and fungal infection was negative. Her liver profile in April 2015 was completely normal; LFT's were normal in 05/2016 Negative colonoscopy for Heme + Stool in 10/2016 ERCP with sphincterotomy for recurrent bile duct stone removal in 02/2017-Dr. Bellamy Multiple myleoma UGI bleed due to duodenal ulcer 2020 destiny ated at [facility] with EGD x 2 DVT Surgical History Surgery Date(Month/Year) HODAN Splenectomy-for hemolytic anemia Bilateral knee replacements in 2004 and 2006 Tonsillectomy Cholecystectomy 06/2014 Hospitalization History Reason Date(Month/Year)
--- OUTSIDE RECORDS SUMMARY | 2024-08-07 13:41 | XMS_ITS ---
Author Organization Jonathan Lilly MD Address [address] [place], [place] [id number] Care Team Providers Care Sap Basis Administrator Name Role Phone Jonathan Lilly Primary Care Provider Allergies Allergen (clinical drug ingredient) Drug/Non Drug Allergy documented on EMR Reaction Allergy Type Onset Date Status penicillin G Penicillin G Potassium hives Drug Allergy Active hyoscyamine levbid (uncoded) hives Allergy A ctive REASON FOR VISIT 2 MO F/U Medications Medication SIG (Take, Route, Frequency, Duration) Notes Start Date End Date Status Imodium A-D 2 MG 1 tablet as needed Orally Four times a day Not-Taki ng Famotidine 20 MG 1 tablet at bedtime as needed Orally M W F Not-Taking predniSONE 20 MG 1 tablet Orally Once a day for 5 days 06/01/2022 Not-Taking Revlimid 10 MG 1 capsule Orally Onc e a day for 30 day(s) Not-Taking ZyrTEC Allergy 10 MG 1 tablet Orally Onc e a day for 30 day(s) Not-Taking Ferrous Sulfate 325 (65 Fe) MG TAKE 1 TABLET BY MOUTH EVERY DAY for 90 Active amLODIPine Besylate 10 MG TAKE 1 TABLET BY MOUTH EVERY DAY Active Celecoxib 200 MG 1 capsule with food Orally Once a day for 30 day(s) Not-Taking Eliquis 5 MG TAKE 1 TABLET BY MALORIE TH TWICE A DAY for 90 Active Vancomycin HCl 125 MG as directed Orally bid 10/31 Active Furosemide 20 MG TAKE 1 TABLET BY MALORIE TH EVERY DAY for 90 Active Acyclovir 400 MG 1 tablet Orally Twic e a day for 10 day(s) Active Pantoprazole Sodium 40 MG TAKE 1 TABLET BY MOUTH TWICE A DAY for 90 Active Klor-Con M20 20 MEQ TAKE 1 TABLET BY MALORIE TH EVERY DAY WITH FOOD for 90 Active Doxycycline Hyclate 100 MG 1 capsule Orally Twice a day Active Gabapentin 100 MG 1 capsule Orally TID Active Tylenol 325 MG 1 capsule as needed Orally every 6 hrs Active Vital Signs Blood pressure systolic 132 mm Hg 05/03/19 25 Blood pressure diastolic 68 mm Hg 025 Height 63.50 in 05/03/2024 Weight 146 lbs 05/03/2024 BMI 25.45 kg/m2 05/03/2024 wweight is up 3 pounds since 03-02-24 Encounters Encounter Location Date Provider Diagnosis Jonathan Lilly MD [address] [place] [address] Drive [address] [place], [place] [id number] 05/03/2024 Jonathan Lilly Infection and inflammatory reaction due to other internal joint prosthesis, subsequent encounter T84.59XD and Essential hypertension I10 Assessments Encounter Date Diagnosis (ICD Code) Assessment Notes Treatment Notes Treatment Clinical Notes Section Notes 05/03/2024 Infection and inflammatory reaction due to other internal joint prosthesis, subsequent encounter (ICD-10 - T84.59XD) being followed by infectious disease 05/03/2024 Essential hypertension (ICD-10 - I10) doing well on meds Plan Of Treatment Medication Medication Name Sig Start Date Stop Date Notes amLODIPine Besylate 10 MG TAKE 1 TABLET BY MOUTH EVERY DAY Doxycycline Hyclate 100 MG 1 capsule Orally Twice a day Treatment Notes Assessment Notes Infection and inflammatory r eaction due to other internal joint prosthesis, subsequent encounter being followed by infectious disease Essential hypertension doing well on med s Next Appt Details Provider Name:Jonathan lacy, 08/14/2024 10:30:00 AM, [address] [place] [address], [address], [place], [place], [id number], Progress Notes * Valarie SZYMANSKI MDOB:1945 ( 78 yo F)Acc No.[id number]:05/03/2024 Progress Notes Patient:?Valarie Szymanski Provider:?Jonathan Lilly MD :1945???Age:78 Y???Sex:Female D ate:05/03/2024 Address:[address] [place], [place] [id number] Subjective: * Chief Complaints: * ???2 MO F/U * HPI: ???Symptom(s):? patient is a 78 yo fema;le here for 2 month follow up visit. doing well./ pic line came out day after brady is on doxycycline twice a day and vancomicin. going to see infec disease in 2 months. * ROS:?General/Constitutional:?Denies?Chills.?Denies?Fatigue.?Denies?Fever.?Denies?Headache.?ENT:?Patient denies?decreased sense of smell , any loss of taste , sore throat.?Denies?Sore throat.?Respiratory:?Denies?Cough.?Denies?Shortness of breath at rest.?Denies?Shortness of breath with exertion.?Gastrointestinal:?Denies?Diarrhea.?Denies?Nausea.?Musculoskeletal:?Patient denies?muscle aches.?Peripheral Vascular:?Patient denies?red and blue toes.? * Medical History:? * Surgical History:? * Hospitalization/Major Diagno stic Procedure:? * Medications:?TakingDoxycycli ne Hyclate 100 MG Capsule 1 capsule Orally Twice a dayTylenol 325 MG Capsule 1 capsule as needed Orally every 6 hrsGabapentin 100 MG Capsule 1 capsule Orally TIDAcyclovir 400 MG Tablet 1 tablet Orally Twice a dayFurosemide 20 MG Tablet TAKE 1 TABLET BY MOUTH EVERY DAY Klor-Con M20 20 MEQ Tablet Extended Release TAKE 1 TABLET BY MOUTH EVERY DAY WITH FOOD Pantoprazole Sodium 40 MG Tablet Delayed Release TAKE 1 TABLET BY MOUTH TWICE A DAY Ferrous Sulfate 325 (65 Fe) MG Tablet TAKE 1 TABLET BY MOUTH EVERY DAY amLODIPine Besylate 10 MG Tablet TAKE 1 TABLET BY MOUTH EVERY DAY Vancomycin HCl 125 MG Capsule as directed Orally bidEliquis 5 MG Tablet TAKE 1 TABLET BY MOUTH TWICE A DAY Taking Doxycycline Hyclate 100 MG Capsule 1 capsule Orally Twice a dayTaking Tylenol 325 MG Capsule 1 capsule as needed Orally every 6 hrsTaking Gabapentin 100 MG Capsule 1 capsule Orally TIDTaking Acyclovir 400 MG Tablet 1 tablet Orally Twice a dayTaking Furosemide 20 MG Tablet TAKE 1 TABLET BY MOUTH EVERY DAY Taking Klor-Con M20 20 MEQ Tablet Extended Release TAKE 1 TABLET BY MOUTH EVERY DAY WITH FOOD Taking Pantoprazole Sodium 40 MG Tablet Delayed Release TAKE 1 TABLET BY MOUTH TWICE A DAY Taking Ferrous Sulfate 325 (65 Fe) MG Tablet TAKE 1 TABLET BY MOUTH EVERY DAY Taking amLODIPine Besylate 10 MG Tablet TAKE 1 TABLET BY MOUTH EVERY DAY Taking Vancomycin HCl 125 MG Capsule as directed Orally bidTaking Eliquis 5 MG Tablet TAKE 1 TABLET BY MOUTH TWICE A DAY Not-Taking/PRNCelecoxib 200 MG Capsule 1 capsule with food Orally Once a dayRevlimid 10 MG Capsule 1 capsule Orally Once a daypredniSONE 20 MG Tablet 1 tablet Orally Once a dayFamotidine 20 MG Tablet 1 tablet at bedtime as needed Orally M W FImodium A-D 2 MG Tablet 1 tablet as needed Orally Four times a dayZyrTEC Allergy 10 MG Tablet 1 tablet Orally Once a dayNot-Taking/PRN Celecoxib 200 MG Capsule 1 capsule with food Orally Once a dayNot-Taking/PRN Revlimid 10 MG Capsule 1 capsule Orally Once a dayNot-Taking/PRN predniSONE 20 MG Tablet 1 tablet Orally Once a dayNot- Taking/PRN Famotidine 20 MG Tablet 1 tablet at bedtime as needed Orally M W FNot-Taking/PRN Imodium A-D 2 MG Tablet 1 tablet as needed Orally Four times a dayNot-Taking/PRN ZyrTEC Allergy 10 MG Tablet 1 tablet Orally Once a dayDiscontinuedDAPTOmycin- Sodium Chloride 500-0.9 MG/50ML Solution as directed Intravenous Medication List reviewed and reconciled with the patientDiscontinued DAPTOmycin-Sodium Chloride 500-0.9 MG/50ML Solution as directed Intravenous Medication List reviewed and reconciled with the patient * Allergies:?Penicillin G Pota ssium: hiveslevbid: hivesyes[Allergies Verified] Objective: * Vitals:?Ht: 63.50, Wt:146, B FL:25.45, BP:132/68 wweight is up 3 pounds since 03-02-24. * Examination: ???General Examination: ?GENERAL APPEARANCE:?alert, well hydrated, in no distress.?HEAD:?normocephalic.?SKIN:?good turgor.?HEART:?regular rate and rhythm , no murmurs, rubs, gallops.?LUNGS:?good air movement , no wheezes, rales, rhonchi.?EXTREMITIES:?abnormal with mild redness of knee.? 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 Plan: * Treatment: 2.?Essential hypertension? Continue amLODIPine Besylate Tablet, 10 MG, TAKE 1 TABLET BY MOUTH EVERY DAY.?? Notes: doing well on meds?? * Procedure Codes:? * * Sign off status: Completed true * Provider:?Jonathan Lilly MD Date:?0 05/03/2024 Generated for [place] hill/Dustin/eTnataliiasmitting on:?08/07/2024 01:40 PM EDT History and Physical Notes * HPI (History of Present Illness) Category Sub-Category Detail Notes Category Not es Symptom(s) patient is a 78 yo fema;le here for 2 month follow up visit. doing well./ pic line came out day after brady is on doxycycline twice a day and vancomicin. going to see infec disease in 2 months. Examination Category Sub-Category Detail Notes Category Not es General Examination GENERAL APPEARANCE: alert, w ell hydrated, in no distress HEAD: normocephalic HEART: regular rate and rhy thm , no murmurs, rubs, gallops LUNGS: good air movement , no wheezes, rales, rhonchi SKIN: good turgor EXTREMITIES: abnormal with mild r edness of knee
--- OUTSIDE RECORDS SUMMARY | 2024-08-07 13:42 | XMS_ITS | Continuity of Care Document ---
Author Organization [facility] Address [address] [place] [id number] Care Team Providers Care Slack Cooper Name Role Phone Jonathan Lilly MD Primary Care Physician [phone] [place] [facility] [place]/04/24 [facility] [address] [place] [address] Attending Physician: Gayatri Tafoya Admitting Physician: Gayatri Tafoya Referring Physician: Gayatri Tafoya Encounter Type: Triage Allergies, Adverse Reactions, Alerts Substance Criticality Severity Reaction Reaction Severity Status clindamycin Active penicillin Active Levbid HIVES Active Immunizations Given and Recorded Vaccine Date Status Refusal Reason haemophilus b conjugate (PRP-T) vaccine 05/25/22 G iven meningococcal group B vaccine 05/25/22 Given meningococcal group B vaccine 04/02/22 Given Meningococcal Conjugate Vaccine 04/02/22 Given pneumococcal 20-valent conjugate vaccine 04/02/22 Given SARS-CoV-2 (COVID-19) mRNA-1273 vaccine 07/15/20 R ecorded SARS-CoV-2 (COVID-19) mRNA-1273 vaccine 06/17/20 R ecorded influenza virus vaccine, inactivated 12/27/19 [place] rded influenza virus vaccine, inactivated 01/01/19 [place] rded influenza virus vaccine, inactivated 01/06/18 [place] rded influenza virus vaccine, inactivated 12/28/16 [place] rded influenza virus vaccine, inactivated 01/06/16 [place] rded zoster vaccine, inactivated 11/28/17 Recorded zoster vaccine, inactivated 08/31/17 Recorded pneumococcal 23-valent vaccine 02/28/17 Recorded Zoster Vaccine Live 07/06/07 Given Medications acyclovir 400 mg oral tablet 1 tablet, By Mouth, 2 times a day, PLENTY OF FLUIDS., # 180 tablet, 1 Refills, Maintenance, 04/13/24 8:53:00 AM EST, [id number], 158, cm, 04/03/24 10:36:00 EST, Height, 66.1, kg, 02/15/24 18:27:00 EDT, Dry Weight Start Date: 04/13/24 Status: Ordered Quantity: 180.0 Unit: tablet Repeat number: 1 amLODIPine 10 mg oral tablet 10 mg, 1, tablet, By Mouth, Daily, # 30 tablet, Refills 0, Tot. Refills 0, Maintenance, 07/28/20 10:28:00 AM EDT, Route to Pharmacy Electronically, [facility]/pharmacy #[id number], Partial fill upon patient requestif the prescription is for a schedule II opioid drug., 75.7, kg, 07/22/20 4:48:00 EDT, Dry Weight Start Date: 07/28/20 Status: Ordered Quantity: 30.0 Unit: tablet Repeat number: 1 celecoxib 200 mg oral capsule = 200 mg, By Mouth, Daily, # 30 capsule, 0 Refills, Maintenance, 02/22/24 11:09:00 AM EDT, Capsule,[facility], Partial fill upon patient request if the prescription is for a schedule II opioid drug., 158, cm, 02/22/24 6:42:00 EDT, Height, 66.1, kg, 02/15/24 18:27:00 EDT, Dry Weight Start Date: 02/22/24 Stop Date: 03/23/24 Status: Ordered Quantity: 30.0 Unit: capsule Repeat number: 1 doxycycline hyclate 100 mg oral capsule 1 capsule = 100 mg, By Mouth, 2 times a day, for 90 days, # 180 capsule, 0 Refills, Acute 10/22/24 12:03:00 PM EDT, 07/24/24 12:03:00 PM EDT, [facility]/pharmacy #[id number], Partial fill upon patient request if theprescription is for a schedule II opioid drug., 158, cm, 07/16/24 13:59:00 EDT, Height, 65.8, kg, 07/16/24 13:59:00 EDT, Dry Weight Start Date: 07/24/24 Stop Date: 10/22/24 Status: Ordered Quantity: 180.0 Unit: capsule Repeat number: 1 Eliquis 5 mg oral tablet 1 tablet = 5 mg, By Mouth, 2 times a day, # 60 tablet, 5 Refills, Maintenance, 02/15/24 6:25:00 PM EDT, Tablet, Partial fill upon patient request if the prescription is for a schedule II opioid drug. Start Date: 02/15/24 Status: Ordered Quantity: 60.0 Unit: tablet Repeat number: 1 Flush NaCl 0.9% 10 mL, IV Push, Every 8 hours, to PICC line when not in use, 0 Refills, Maintenance, 02/22/24 11:09:00 AM EDT, Injection, Partial fill upon patient request if the prescription is for a schedule II opioid drug. Start Date: 02/22/24 Status: Ordered Repeat number: 1 gabapentin 100 mg oral capsule 1, capsule, By Mouth, 3 times a day, # 90 capsule, Refills 2, Maintenance, 06/19/24 11:11:00 AM EST,Route to Pharmacy Electronically, [id number], 158, cm, 05/01/24 9:21:00 EST, Height, 66.3, kg,04/23/24 13:35:00 EST, Dry Weight Start Date: 06/19/24 Status: Ordered Quantity: 90.0 Unit: capsule Repeat number: 1 Lasix 20 mg oral tablet 20 mg, 1, tablet, By Mouth, Daily, Refills 0, Maintenance, 09/25/20 10:27:00 AM EDT, Partial fill upon patient request if the prescription is for a schedule II opioid drug. Start Date: 09/25/20 Status: Ordered Repeat number: 1 loperamide 2 mg oral capsule 2 mg, 1, capsule, By Mouth, Every 4 hours, PRN, # 30 capsule, Refills 1, Tot. Refills 1, Maintenance, Loose Stool, 02/05/21 8:09:00 AM EDT, Route to Pharmacy Electronically, [facility]/pharmacy #[id number], Partial fill upon patient request if the prescription is for a schedule II opioid drug., 160, cm, 02/04/21 14:12:00 EDT, Height, 69, kg, 02/04/21 14:12:00 EDT, Dry Weight Start Date: 02/05/21 Status: Ordered Quantity: 30.0 Unit: capsule Repeat number: 2 pantoprazole 40 mg oral delayed release tablet 1 tablet = 40 mg, By Mouth, 2 times a day, # 60 tablet, 0 Refills, Maintenance, 11/27/20 10:54:00 AM EDT, EC Tablet, 160, cm, 11/27/20 7:15:00 EDT, Height, 67.2, kg, 11/21/20 22:30:00 EDT, Dry Weight Start Date: 11/27/20 Stop Date: 12/27/20 Status: Ordered Quantity: 60.0 Unit: tablet Repeat number: 1 potassium chloride 10 mEq oral capsule, extended release 1 capsule = 10 mEq, By Mouth, Daily, Maintenance, 05/01/21 5:23:00 PM EST, CR Capsule, Partial fill upon patient request if the prescription is for a schedule II opioid drug. Start Date: 05/01/21 Status: Ordered Repeat number: 1 Tylenol 325 mg oral tablet 650 mg, 2, tablet, By Mouth, Every 4 hours, PRN, Refills 0, Maintenance, Pain , Mild, 11/27/20 10:52:00 AM EDT, Partial fill upon patient request if the prescription is for a schedule II opioid drug. Start Date: 11/27/20 Status: Ordered Repeat number: 1 vancomycin 125 mg oral capsule 1 capsule = 125 mg, By Mouth, Every 6 hours, 0 Refills, Maintenance, 05/01/24 9:30:00 AM EST, Partialfill upon patient request if the prescription is for a schedule II opioid drug. Start Date: 05/01/24 Status: Ordered Repeat number: 1 vancomycin 125 mg oral capsule 1 capsule = 125 mg, By Mouth, 2 times a day, for 30 days, # 60 capsule, 1 Refills, Acute 09/18/24 10:36:00 AM EDT, 07/20/24 10:36:00 AM EDT, [facility] ([facility]) #[id number], Partial fill upon patient request if the prescription is for a schedule II opioid drug., 158, cm, 07/16/24 13:59:00 EDT, Height,65.8, kg, 07/16/24 13:59:00 EDT, Dry Weight Start Date: 07/20/24 Stop Date: 09/18/24 Status: Ordered Quantity: 60.0 Unit: capsule Repeat number: 2 vancomycin 125 mg oral capsule 1 capsule = 125 mg, By Mouth, 2 times a day, for 90 days, # 180 capsule, 0 Refills, Acute 10/22/24 12:03:00 PM EDT, 07/24/24 12:03:00 PM EDT, [facility]/pharmacy #[id number], Partial fill upon patient request if theprescription is for a schedule II opioid drug., 158, cm, 07/16/24 13:59:00 EDT, Height, 65.8, kg, 07/16/24 13:59:00 EDT, Dry Weight Start Date: 07/24/24 Stop Date: 10/22/24 Status: Ordered Quantity: 180.0 Unit: capsule Repeat number: 1 Problem List Condition Confirmation Course Effective Dates Status Health St atus Informant Hypertension Confirmed Active Multiple myeloma Confirmed Active ITP s/p splenectomy Confirmed Active SLE (systemic lupus erythematosus) Confirmed Active Social History Social History Type Response Smoking Status Never (less than 100 in lifetime) entered on: 09/13/20 Sex Sex Representation Female (finding) Patient Care team information Care Team Personnel Name: Diya Parker Position: [facility] Onco RN Member Role: Primary Care Nurse Name: Wendi Archuleta RN Position: [facility] RN Member Role: Primary Care Nurse Name: Antonio Naranjo RN Position: [facility] ED RN W/OE and Tasks Member Role: Primary Care Nurse Name: Blank Avitia RN Position: [facility] RN Member Role: Primary Care Nurse Name: Jonathan Lilly MD Position: Reference Physician Member Role: PCP Address: [address] [facility] Jonathan Lilly MD [place], [place] [address] Telecom: [phone] Name: Brandon Roberts RN Position: [facility] RN Member Role: Primary Care Nurse Name: Anjali Davis Position: S Outreach Member Role: Lifetime Consulting Physician Name: Donna Le RN Position: [facility] RN Member Role: Primary Care Nurse Name: Zander Natarajan RN Position: [facility] RN Member Role: Primary Care Nurse Name: Carmina Rubio RN Position: [facility] Onco RN Member Role: Primary Care Nurse Name: Ann Sorto RN Position: [facility] RN Member Role: Primary Care Nurse Name: Jesse Garcia RN Position: [facility] RN Member Role: Primary Care Nurse Name: Samra Phillips RN Position: [facility] Onco RN Member Role: Primary Care Nurse Name: Ernestine Plasencia RN Position: [facility] RN Member Role: Primary Care Nurse Name: Sukhjinder Mari RN Position: [facility] RN Member Role: Primary Care Nurse Name: Polo Diana RN Position: [facility] Onco RN Member Role: Primary Care Nurse Name: Jennifer Miranda RN Position: [facility] RN Member Role: Primary Care Nurse Name: Gretta Kendrick RN Position: [facility] SN RN Member Role: Primary Care Nurse Name: Edel Canchola RN Position: [facility] RN Member Role: Primary Care Nurse Name: Marianne Estevez RN Position: [facility] SN RN Member Role: Primary Care Nurse Name: Blanka Fox RN, I Position: [facility] RN Member Role: Primary Care Nurse Care Team Related Persons Name: ANTONIO GREENE Name: ANTONIO GREENE Name: MERT AGUILAR Insurance Providers Guarantor name: FELICIA GREENE Health Plan Information #: 1 Payer: MEDICARE PART B OUTPT Member Number: NA Policy Number: NA Group Number: NA Health Plan Information #: 2 Payer: [facility] Member Number: NA Policy Number: NA Group Number: NA
--- OUTSIDE RECORDS SUMMARY | 2024-08-07 13:42 | XMS_ITS ---
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 Name Role Phone Jonathan Lilly Primary Care Provider Allergies Allergen (clinical drug ingredient) Drug/Non Drug Allergy documented on EMR Reaction Allergy Type Onset Date Status penicillin G Penicillin G Potassium hives Drug Allergy Active hyoscyamine levbid (uncoded) hives Allergy A ctive REASON FOR VISIT PH/TCM Medications Medication SIG (Take, Route, Frequency, Duration) Notes Start Date End Date Status ZyrTEC Allergy 10 MG 1 tablet Orally Onc e a day for 30 day(s) Not-Taking Imodium A-D 2 MG 1 tablet as needed Orally Four times a day Not-Taki ng predniSONE 20 MG 1 tablet Orally Once a day for 5 days 06/01/2022 Not-Taking Famotidine 20 MG 1 tablet at bedtime as needed Orally M W F Not-Taking Vancomycin HCl 125 MG as directed Orally bid 10/31 Active Pantoprazole Sodium 40 MG TAKE 1 TABLET BY MOUTH TWICE A DAY for 90 Active Klor-Con M20 20 MEQ TAKE 1 TABLET BY MALORIE TH EVERY DAY WITH FOOD for 90 Active amLODIPine Besylate 10 MG TAKE 1 TABLET BY MOUTH EVERY DAY for 90 Active Ferrous Sulfate 325 (65 Fe) MG TAKE 1 TABLET BY MOUTH EVERY DAY for 90 Active Furosemide 20 MG TAKE 1 TABLET BY MALORIE TH EVERY DAY for 90 Active Clobetasol Propionate 0.05 % 1 application to affected area Externally Twice a day for 10 day(s) 09/16/2016 Active Acyclovir 400 MG 1 tablet Orally Twic e a day for 10 day(s) Active Eliquis 5 MG TAKE 1 TABLET BY MALORIE TH TWICE A DAY for 90 Active Clotrimazole-Betamethason e 1-0.05 % 1 application Externally Twice a day for 10 days 07/29/2020 Active Revlimid 10 MG 1 capsule Orally Onc e a day for 30 day(s) Active Celecoxib 200 MG 1 capsule with food Orally Once a day for 30 day(s) Active Tylenol 325 MG 1 capsule as needed Orally every 6 hrs Active DAPTOmycin-Sodium Chloride 500-0.9 MG/50ML as directed Intravenous Active Gabapentin 100 MG 1 capsule Orally TID Active Problems Problem Type SNOMED Code ICD Code Onset Dates Problem Status W/U Status Risk Notes Problem [id number] Presence of unspecified artificial knee joint (Z96.659) Active confirmed Vital Signs Blood pressure systolic 138 mm Hg 03/02/20 24 Blood pressure diastolic 80 mm Hg 024 Height 63.50 in 03/02/2024 Weight 143 lbs 03/02/2024 BMI 24.93 kg/m2 03/02/2024 weight is down 6 pounds [facility] 01-30-24 Encounters Encounter Location Date Provider Diagnosis Jonathan Lilly MD [address] [place] [address] [place] [phone] 03/02/2024 Jonathan Lilly Pain in right knee M25.561 ; Infection and inflammatory reaction due to other internal joint prosthesis, subsequent encounter T84.59XD and Presence of unspecified artificial knee joint Z96.659 Assessments Encounter Date Diagnosis (ICD Code) Assessment Notes Treatment Notes Treatment Clinical Notes Section Notes 03/02/2024 Pain in right knee (ICD-10 - M25.561) 03/02/2024 Infection and 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 is awaiting further cultures. at present receiving iv antibiotics daily and will probably need po antibiotics for months. of particular concern is that she has had very diffiucult to treat c dificl infection and has diarrhea since shortly after starting ab. is on vanco which she should remain on throughout her antibiotic treatment. have advised her to leave the pic line in until she sees the infection disease specialist 03/02/2024 Presence of unspecified artificial knee joint (ICD-10 - Z96.659) is doing well since the surgery. 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 is awaiting further cultures. at present receiving iv antibiotics daily and will probably need po antibiotics for months. of particular concern is that she has had very diffiucult to treat c dificl infection and has diarrhea since shortly after starting ab. is on vanco which she should remain on throughout her antibiotic treatment. have advised her to leave the pic line in until she sees the infection disease specialist Presence of unspecified alyson ficial knee joint is doing well since the surgery. has diarrhea but is better on the vanco Next Appt Details Follow Up: 2 Months, Reason: Provider Name:Jonathan Fisher ier, 08/14/2024 10:30:00 AM, [address] [place] [address], [address], [place], [place], [phone], Progress Notes * Valarie SZYMANSKI MDOB:1945 ( 78 yo F)Acc No.[id number]:03/02/2024 Patient:?Valarie Szymanski Provider:?Jonathan Lilly MD :1945???Age:78 Y???Sex:Female D ate:03/02/2024 Address:[address] [place], [place] [id number] Subjective: * Chief Complaints: * ???PH/TCM * HPI: ???Symptom(s):? patient is a 78 yo female here fr transitional care management visit had an infected knee and had to have some of her prostheses changed. Discharge summary has been reviewed and dmedications reconcilled. * ROS:?General/Constitutional:?Denies?Chills.?Denies?Fatigue.?Denies?Fever.?Denies?Headache.?ENT:?Patient denies?decreased sense of smell , any loss of taste , sore throat.?Denies?Sore throat.?Respiratory:?Denies?Cough.?Denies?Shortness of breath at rest.?Denies?Shortness of breath with exertion.?Gastrointestinal:?Denies?Diarrhea.?Denies?Nausea.?Musculoskeletal:?Patient denies?muscle aches.?Peripheral Vascular:?Patient denies?red and blue toes.? * Medical History:? * Surgical History:? * Hospitalization/Major Diagno stic Procedure:? * Medications:?TakingCelecoxib 200 MG Capsule 1 capsule with food Orally Once a dayDAPTOmycin-Sodium Chloride 500-0.9 MG/50ML Solution as directed Intravenous Tylenol 325 MG Capsule 1 capsule as needed Orally every 6 hrsGabapentin 100 MG Capsule 1 capsule Orally TIDRevlimid 10 MG Capsule 1 capsule Orally Once a dayClotrimazole-Betamethasone 1-0.05 % Cream 1 application Externally Twice a dayAcyclovir 400 MG Tablet 1 tablet Orally Twice a dayClobetasol Propionate 0.05 % Cream 1 application to affected area Externally Twice a dayEliquis 5 MG Tablet TAKE 1 TABLET BY MOUTH TWICE A DAY Furosemide 20 MG Tablet TAKE 1 TABLET [...] 125 MG Capsule as directed Orally bidTaking Celecoxib 200 MG Capsule 1 capsule with food Orally Once a dayTaking DAPTOmycin-Sodium Chloride 500-0.9 MG/50ML Solution as directed Intravenous Taking Tylenol 325 MG Capsule 1 capsule as needed Orally every 6 hrsTaking Gabapentin 100 MG Capsule 1 capsule Orally TIDTaking Revlimid 10 MG Capsule 1 capsule Orally Once a dayTaking Clotrimazole-Betamethasone 1-0.05 % Cream 1 application Externally Twice a dayTaking Acyclovir 400 MG Tablet 1 tablet Orally Twice a dayTaking Clobetasol Propionate 0.05 % Cream 1 application to affected area Externally Twice a dayTaking Eliquis 5 MG Tablet TAKE 1 TABLET BY MOUTH TWICE A DAY Taking Furosemide 20 MG Tablet TAKE 1 TABLET [...] HCl 125 MG Capsule as directed Orally bidNot-Taking/PRNpredniSONE 20 MG Tablet 1 tablet Orally Once a dayFamotidine 20 MG Tablet 1 tablet at bedtime as needed Orally M W FImodium A-D 2 MG Tablet 1 tablet as needed Orally Four times a dayZyrTEC Allergy 10 MG Tablet 1 tablet Orally Once a dayMedication List reviewed and reconciled with the patientNot-Taking/PRN predniSONE 20 MG Tablet 1 tablet Orally Once a dayNot-Taking/PRN Famotidine 20 MG Tablet 1 tablet at bedtime as needed Orally M W FNot-Taking/PRN Imodium A-D 2 MG Tablet 1 tablet as needed Orally Four times a dayNot-Taking/PRN ZyrTEC Allergy 10 MG Tablet 1 tablet Orally Once a dayMedication List reviewed and reconciled with the patient * Allergies:?Penicillin G Pota ssium: hiveslevbid: hivesyes[Allergies Verified] Objective: * Vitals:?Ht: 63.50, Wt:143, B KY:24.93, BP:138/80 weight is down 6 pounds since 01-30-24. * Examination: ???General Examination: ?GENERAL APPEARANCE:?alert, well hydrated, in no distress.?HEAD:?normocephalic.?SKIN:?abnormal with a healing of her recent surgery does look clean.?HEART:?regular rate and rhythm , no murmurs, rubs, gallops.?LUNGS:?no wheezes, rales, rhonchi , good air movement , clear to auscultation bilaterally.? Assessment: * Assessment: 1.?Pain in right knee - M25. 561 (Primary)?2.?Infection and inflammatory reaction due to other internal joint prosthesis, subsequent encounter - T84.59XD?3.?Presence of unspecified artificial knee joint - Z96.659? Plan: * Treatment: 2.?Presence of unspecified a rtificial knee joint? Notes: is doing well since the surgery. has diarrhea but is better on the vanco?? * Procedure Codes:? * Follow Up:?2 Months * * Sign off status: Completed true * Provider:?Jonathan Lilly MD Date:?1 05/02/2023 Generated for Noy hill/Dustin/eTransmitting on:?08/07/2024 01:41 PM EDT History and Physical Notes * HPI (History of Present Illness) Category Sub-Category Detail Notes Category Not es Symptom(s) patient is a 78 yo female here fr transitional care management visit had an infected knee and had to have some of her prostheses changed. Discharge summary has been reviewed and dmedications reconcilled Examination Category Sub-Category Detail Notes Category Not es General Examination GENERAL APPEARANCE: alert, w ell hydrated, in no distress HEAD: normocephalic HEART: regular rate and rhy thm , no murmurs, rubs, gallops LUNGS: no wheezes, rales, r honchi , good air movement , clear to auscultation bilaterally SKIN: abnormal with a heal ing of her recent surgery does look clean
--- OUTSIDE RECORDS SUMMARY | 2024-08-07 13:42 | XMS_ITS | Patient Health Record ---
Author Organization Jonathan Lilly MD Address [address] [place], [place] [id number] Care Team Providers Care Founding Partner Name Role Phone Jonathan Lilly Primary Care Provider [phone] Allergies Allergen (clinical drug ingredient) Drug/Non Drug Allergy documented on EMR Reaction Allergy Type Onset Date Status penicillin G Penicillin G Potassium hives Drug Allergy Active hyoscyamine levbid (uncoded) hives Allergy A ctive Results Component Value Reference Range Notes Hemoglobin A1c Reviewed date:01/30/2024 09:52:02 AM Interpretation: Performing Lab: Notes/Report: Hemoglobin A1c 5.8 Comprehensive [facility]. Panel Fa st (Not yet reviewed by provider) Interpretation: Performing Lab:[facility], [address] [place] [address] Notes/Report: Sodium 139 135-145 mmol/L Potassium 4.0 [...] (Not yet reviewed by provider) Interpretation: Performing Lab:[facility], [address] [place] [phone] Notes/Report: Urine, Clean Catch Color Urine Yellow Appearance Urine Clear PH 5.5 5.0-9.0 Glucose Urine UA Negative Negative mg/dL Urine Blood Negative Negative Specific [place] - Urine 1.015 1.005-1.025 Urine Protein Negative [...] ff Reviewed date:08/07/2024 01:12:06 PM Interpretation: Performing Lab:[facility], [address] [place] [phone] Notes/Report: White Blood Count 5.4 4.8-10.8 X10*3/uL [...] Panel Reviewed date:08/07/2024 01:05:25 PM Interpretation: Performing Lab:[facility], [address] [place] [phone] Notes/Report: Triglycerides 59 <150 mg/dL Desirable Triglyceride: [...] Random Reviewed date:08/07/2024 01:06:06 PM Interpretation: Performing Lab:[address] [phone] Notes/Report: Creatinine Urine 80.55 Microalbumin Urine < 5.0 Microalbum/Creatinine Ratio Ur TNP <30 ug/mg cr Unable to calculate albumin/creatinine ratio due to low microalbumin or creatinine result. Hemoglobin A1c Reviewed date:08/07/2024 01:05:09 PM Interpretation: Performing Lab:[facility], [address] [place] [phone] Notes/Report: Hemoglobin A1c % 5.4 <6.0 % [...] average glucose, using the formula of the X2O-Ifvcqkh Average Glucose study (ADAG), Diabetes Care, Vol.31,#8, Nov. 2007 Microalbumin, Random Reviewed date:08/11/2023 05:29:07 PM Interpretation: Performing Lab:[facility], [address] [place] [phone] Notes/Report: Creatinine Urine 162.98 Microalbumin Urine 451.0 Microalbum/Creatinine Ratio Ur 276.7 <30 ug/mg cr Albumin/Creatinine Ratio Reference Ranges: Normal: < 30 ug/mg creatinine Microalbuminuria: 30 - 300 ug/mg creatinine Clinical Albuminuria: > 300 ug/mg creatinine UA ClnCatch+Micro w/rflx Cul t Reviewed date:08/11/2023 05:34:14 PM Interpretation: Performing Lab:[facility], [address] [place] [phone] Notes/Report: [id number] Urine, Clean Catch Color Urine Yellow Appearance Urine Clear PH 5.0 5.0-9.0 Glucose Urine UA Negative Negative mg/dL Urine Blood Negative Negative Specific [place] - Urine 1.025 1.005-1.025 Urine Protein 100 (2+) Neg-Trace mg/dL Urine Ketones Trace Negative mg/dL Nitrite Urine Negative Negative Leukocyte Esterase Urine Negative Negative RBC Urine 0-2 0-2 /HPF WBC Urine 0-5 0-5 /HPF Squamous Epithelial Cell Urine 0-2 0-2 /HPF Bacteria Urine None Seen None Seen Hyaline Casts Urine 0-2 0-2 /LPF Glucose, finger stick Reviewed date:01/30/2024 09:45:20 AM Interpretation: Performing Lab: Notes/Report: Value 170 MM tomosynthesis screening B I Reviewed date:05/07/2024 02:30:44 PM Interpretation: Performing Lab: [facility]Report: [facility] [address] [place] [address] Mammography Report Signed Patient: Valarie Szymanski MR#: [id number] : 1945 Acct:[id number] Age/Sex: 78 / F ADM Date: 04/30/24 Loc: HO.MAMMO Attending Dr: Jonathan Lilly MD Ordering Physician: Jonathan Lilly MD Results: 2Be nign Findings Date of Service: 04/30/24 Follow Up: 1 Year From Orig ina Mammogram Procedure(s): MM tomosynthesis screening BI Accession Number(s): [id number] cc: Jonathan Lilly MD EXAMINATION: MM SCREENING DIGITAL BREAST TOMOSYNTHESIS, BILATERAL CLINICAL INFORMATION: Screening. Asymptomatic. COMPARISON: Mammography: Comparison is made with available priors TECHNIQUE: Digital breast mammography with tomosynthesis is performed in both the craniocaudal and mediolateral oblique views along with computer-aided detection (CAD). FINDINGS: There are scattered areas of fibroglandular density (ACR BI-RADS breast composition Category b). Right marker clip. There are no significant masses, abnormal calcifications, or other abnormalities. MM/MM tomosynthesis screening BI IMPRESSION: No mammographic evidence of malignancy. ASSESSMENT: BI-RADS BI-RADS 2 - Benign Findings RECOMMENDATION: Routine annual mammography screening. 1 year F/U This examination should not preclude the clinical evaluation of a suspicious palpable abnormality. This patient's information was entered into a reminder system with a target due date for their next mammogram. Electronically signed by: Riri Benitez DO 05/06/2024 05:58 PM EST Dictated By: Riri Benitez DO Signed By: <Electronically signed by Riri Benitez DO in OV> 05/06/24 1758 DD/ 1145 TD/TT: 04/30/24 1200 Travel Guide: [facility] [address] [place], [place] [address] Mammography Report Signed Patient: Valarie Szymanski MR#: [id number] : 1945 Acct:[id number] Age/Sex: 78 / F ADM Date: 04/30/24 Loc: HO.MAMMO Attending Dr: Jonathan Lilly MD Ordering Physician: Jonathan Lilly MD Results: 2Be nign Findings Date of Service: 04/30/24 Follow Up: 1 Year From [facility] Mammogram Procedure(s): MM tomosynthesis screening BI Accession Number(s): [id number] cc: Jonathan Lilly MD EXAMINATION: MM SCREENING DIGITAL BREAST TOMOSYNTHESIS, BILATERAL CLINICAL INFORMATION: Screening. Asymptomatic. COMPARISON: Mammography: Comparison is made with available priors TECHNIQUE: Digital breast mammography with tomosynthesis is performed in both the craniocaudal and mediolateral oblique views along with computer-aided detection (CAD). FINDINGS: There are scattered areas of fibroglandular density (ACR BI-RADS breast composition Category b). Right marker clip. There are no significant masses, abnormal calcifications, or other abnormalities. MM/MM tomosynthesis screening BI IMPRESSION: No mammographic evidence of malignancy. ASSESSMENT: BI-RADS BI-RADS 2 - Benign Findings RECOMMENDATION: Routine annual mammography screening. 1 year F/U This examination should not preclude the clinical evaluation of a suspicious palpable abnormality. This patient's information was entered into a reminder system with a target due date for their next mammogram. Electronically catarina d by: Riri Benitez DO 05/06/2024 05:58 PM [facility] Dictated By: Riri Benitez DO Signed By: <Electronically signed by Riri Benitez DO in OV> 05/06/24 1758 DD/ 1145 TD/TT: 04/30/24 1200 Travel Guide: Reason For Referral No Information Medications Medication SIG (Take, Route, Frequency, Duration) Notes Start Date End Date Status Imodium A-D 2 MG 1 tablet as needed Orally Four times a day Not-Taki ng Acyclovir 400 MG 1 tablet Orally Twic e a day for 10 day(s) Active Famotidine 20 MG 1 tablet at bedtime as needed Orally M W F Not-Taking Gabapentin 100 MG 1 capsule Orally TID Active predniSONE 20 MG 1 tablet Orally Once a day for 5 days 06/01/2022 Not-Taking Revlimid 10 MG 1 capsule Orally Onc e a day for 30 day(s) Not-Taking Ferrous Sulfate 325 (65 Fe) MG TAKE 1 TABLET BY MOUTH EVERY DAY for 90 Active Pantoprazole Sodium 40 MG TAKE 1 TABLET BY MOUTH TWICE A DAY for 90 Active ZyrTEC Allergy 10 MG 1 tablet Orally Onc e a day for 30 day(s) Not-Taking amLODIPine Besylate 10 MG TAKE 1 TABLET BY MOUTH EVERY DAY Active Doxycycline Hyclate 100 MG 1 capsule Orally Twice a day Active Tylenol 325 MG 1 capsule as needed Orally every 6 hrs Active Klor-Con M20 20 MEQ TAKE 1 TABLET BY MALORIE TH EVERY DAY WITH FOOD for 90 Active Celecoxib 200 MG 1 capsule with food Orally Once a day for 30 day(s) Not-Taking Eliquis 5 MG TAKE 1 TABLET BY MALORIE TH TWICE A DAY for 90 Active Furosemide 20 MG TAKE 1 TABLET BY MALORIE TH EVERY DAY for 90 Active Vancomycin HCl 125 MG as directed Orally bid 10/31 Active Immunizations Vaccine Route Administration Date Status Comme nts Flu Vaccine IM Intramuscular 01/12/2011 Administered TDaP IM Intramuscular 08/24/2011 Administered Flu Vaccine IM Intramuscular 01/10/2012 Administered Prevnar 13 IM Intramuscular 02/21/2012 Administered PPSV23 (Pnemovax) IM Intramuscular 02/21/2012 Administered Meningoccal IM Intramuscular 02/29/2012 Administered Dian nt picked up vaccine and we administered Flu Vaccine IM Intramuscular 01/15/2013 Administered Fluarix Quadrivalent IM Intramuscular 01/01/2014 Administered Shingles Unknown 02/01/2007 Administered [facility] Fluarix Quadrivalent IM Intramuscular 01/21/2015 Administered Fluarix Quadrivalent IM Intramuscular 01/06/2016 Administered Fluarix Quadrivalent IM Intramuscular 12/28/2016 Administered PPSV23 (Pnemovax) IM Intramuscular 02/28/2017 Administered Shingrix IM Intramuscular 09/02/2017 Administered pt was given the vaccine at [facility] in [place]. Shingrix IM Intramuscular 11/28/2017 Administered pt was given the vaccine at [facility]. Fluarix Quadrivalent IM Intramuscular 01/06/2018 Administered Fluarix Quadrivalent IM Intramuscular 01/01/2019 Administered Influenza High Dose IM Intramuscular 12/27/2019 Administered Covid Vaccine Unknown 06/17/2020 Administered Moderna Covid Vaccine Unknown 07/15/2020 Administered Moderna Influenza High Dose IM Intramuscular 01/05/2021 Administered SARS-COV-2 Pfizer Unknown 02/02/2021 Administered [facility] SARS-COV-2 Moderna Unknown 02/02/2021 Administered SARS-COV-2 Moderna Unknown 08/24/2021 Administered [facility] Influenza High Dose IM Intramuscular 12/25/2021 Administered SARS-COV-2 Moderna Unknown 01/22/2022 Administered [facility] SARS-COV-2 Pfizer Unknown 01/22/2022 Administered Influenza High Dose IM Intramuscular 01/18/2023 Administered SARS-COV-2 Moderna Unknown 02/21/2023 Administered [facility] RSV Unknown 03/25/2023 [facility]ered [facility] Influenza High Dose IM Intramuscular 01/03/2024 Administered Flu Vaccine Unknown 01/01/2014 Pending Social History Tobacco Use: Social History Observation Description Date Details (start date - stop date) Never Smoker NA - NA Tobacco Use/Smoking Question Answer Notes Patient is a nonsmoker Alcohol Screen Question Answer Notes Did you have a drink contain ing alcohol in the past year? Yes How often did you have a dri nk containing alcohol in the past year? Monthly or less (1 point) How many drinks did you have on a typical day when you were drinking in the past year? 1 or 2 drinks (0 point) How often did you have 6 or more drinks on one occasion in the past year? 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 Problem 293507251 Other specified menopausal and perimenopausal disorders (N95.8) Active confirmed Problem 234064463166 Presence of unspecified artificial knee joint (Z96.659) Active confirmed Problem 68792201 Essential hypertension (I10) Active confirmed Problem 2639795 Prediabetes (R73.09) Active confirmed Problem 77680563 Sciatica of left side (M54.32) Active confirmed Problem 50354684 Dysthymia (F34.1) Active confirmed Problem 203358214 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) Active confirmed Problem 64219624 Systemic lupus erythematosus (M32.9) Active confirmed Problem 171364613 History of Clostridium difficile (Z87.19) Active confirmed Problem 719013515 Osteopenia after menopause (M81.0) Active confirmed Problem 864269639 Complaint of paresthesia (R20.2) Active confirmed Problem 68816249 Peptic ulcer dis ease with hemorrhage (K27.4) Active confirmed Vital Signs Blood pressure diastolic 68 mm Hg 05/03/2024 wwe ight is up 3 pounds since 03-02-24 Height 63.50 in 05/03/2024 wweight is up 3 pounds since 03-02-24 Blood pressure systolic 132 mm Hg 05/03/2024 wwei ght is up 3 pounds since 03-02-24 Weight 146 lbs 05/03/2024 wweight is up 3 pounds since 03-02-24 BMI 25.45 kg/m2 05/03/2024 wweight is up 3 pounds since 03-02-24 Encounters Encounter Location Date Provider Diagnosis Jonathan Lilly MD [address] [place] [id number] 01/03/2024 Jonathan Lilly Encounter for immunization Z23 Jonathan Lilly MD [address] [place] [id number] 08/07/2024 Jonathan Lilly Lymphocytosis D72.82 0 ; Prediabetes R73.09 and Essential hypertension I10 Jonathan Lilly MD [address] [place] [address] [id number] 08/11/2023 Jonathan Lilly Essential hypertension I10 ; Prediabetes R73.09 ; Lymphocytosis D72.820 and Depression screening Z13.31 Jonathan Lilly MD [address] [place] [id number] 01/30/2024 Jonathan Lilly Prediabetes R73.09 and Pain in right knee M25.561 Jonathan Lilly MD [address] [place] [id number] 03/02/2024 Jonathan Lilly Pain in right knee M25.561 ; Infection and inflammatory reaction due to other internal joint prosthesis, subsequent encounter T84.59XD and Presence of unspecified artificial knee joint Z96.659 Jonathan Lilly MD [address] [place] [address] Drive [address] [place] [id number] 05/03/2024 Jonathan Lilly Infection and inflammatory reaction due to other internal joint prosthesis, subsequent encounter T84.59XD and Essential hypertension I10 Jonathan Lilly MD [address] [place] [address] Drive [address] [place] [id number] 02/23/2024 Jonathan Yaquelinsindianjum Assessments Encounter Date Diagnosis (ICD Code) Assessment Notes Treatment Notes Treatment Clinical Notes Section Notes 01/03/2024 Encounter for immunization (ICD-10 - Z23) 08/07/2024 Lymphocytosis (ICD-10 - D72.820) 08/11/2023 Essential hypertension (ICD-10 - I10) doing well on meds, will continue current regiment 08/11/2023 Prediabetes (ICD-10 - R73.09) a1c good, no need for medication at this time 01/30/2024 Prediabetes (ICD-10 - R73.09) doing well at present, no need for medication at this time 01/30/2024 Pain in right knee (ICD-10 - M25.561) going to [facility] in 2 weeks/ am concerned that she may be infected. should not make any difference to wait the 2 weeks sinc has been a month already 03/02/2024 Pain in right knee (ICD-10 - [...] until she sees the infection disease specialist 05/03/2024 Infection and inflammatory reaction due to other internal joint prosthesis, subsequent encounter (ICD-10 - T84.59XD) being followed by infectious disease 05/03/2024 Essential hypertension (ICD-10 - I10) doing well on meds 08/07/2024 Prediabetes (ICD-10 - R73.09) 08/11/2023 Lymphocytosis (ICD-10 - D72.820) stable 03/02/2024 Presence of unspecified artificial knee joint (ICD-10 - Z96.659) is doing well since the surgery. has diarrhea but is better on the vanco 08/07/2024 Essential hypertension (ICD-10 - I10) 08/11/2023 Depression screening (ICD-10 - Z13.31) negative screen Plan Of Treatment Pending Test Test Name Order Date Electrocardiogram (EKG) 05/22/2015 Comprehensive Weott. Panel Fast 5 UA ClnCatch+Micro w/rflx Cult 08/07/2024 Next Appt Details Provider Name:Jonathan Fisher ier, 08/14/2024 10:30:00 AM, [address] [place] [address], [address], [place], [place], [id number], Insurance Providers Payer Name Payer Address Payer Phone Subscriber Number Group Number Insured Name Patient Relationship to Insured Coverage Start Date Coverage End Date [employer] [address] [place] [address] [id number] Valarie Szymanski Self - patient is the insured [address] [address] [phone] [id number] Valarie Szymanski Self - patient is the insured 4 Medical (General) History Medical History History ICD Code colonoscopy 2011 due in 10 y ear; colonoscopy done 11/02/[address] Cazares (no more needed per Dr. Cazares) itp. had taken rituxin and prednisone/ 11 History of splenectomy Z90.81 taking 25 mg vanco once a day Surgical History Surgery Date(Month/Year) splenectomy hysterectomy, total with bilateral salpi velásquez-oophorectomy (BSO) ERCP w/Extraction of Common Bile Duct [facility] 02/2017
== END 2024-08-07 07:46 | disposition home or self-care (01) ==
LOC: HO.LNP 07:45
PROVIDERS: Visit Provider Internal Medicine
DX: D72.820 Lymphocytosis (symptomatic) (principal); R73.03 Prediabetes; I10 Essential (primary) hypertension
CPT/HCPCS: 80053; 80061; 81001; 82043; 82570; 83036; 85025